=== PATIENT | female | born 1950 | race Caucasian/White ===

== ENCOUNTER 2020-08-06 14:35 | Emergency (ER) | payer MEDICARE, SELFPAY ==
[2020-08-06 14:39] VITALS: BP 136/74; PULSE 76; RESP 18; TEMP 36.3; O2SAT 97
[2020-08-06 15:03] VITALS: BP 170/76; PULSE 73; RESP 13
--- NOTE | 2020-08-06 16:00 | ED.FALL ---
HPI - Fall General Chief Complaint: Fall Stated Complaint: falls, weakness, hx ms & parkinsons dz Time Seen by Provider: 08/06/20 15:31 History of Present Illness HPI Narrative: 69 yo female presents from home for weakness and falls. She fell this morning and has had more frequent falls recently. She says that she has amna feeling weak. No areas of focal weakness. She denies hitting her head, LOC, dizziness, any pain or injury. Related Data Home Medications Medication Instructions Recorded Confirmed carbidopa-levodopa 1 tablet PO TID 05/09/19 05/16/19 citalopram 20 mg PO DAILY 05/09/19 05/09/19 clonazepam 0.5 mg PO DAILY 05/09/19 05/09/19 fluticasone propion-salmeterol 1 ea INHALATION DAILY 05/09/19 05/09/19 [Advair Diskus] lamotrigine 200 mg PO DAILY 05/09/19 05/09/19 levothyroxine 100 mcg PO DAILY 05/09/19 05/09/19 montelukast 10 mg PO DAILY 05/09/19 05/09/19 olanzapine 20 mg PO DAILY 05/09/19 05/09/19 quetiapine 100 mg PO DAILY 05/09/19 05/09/19 raloxifene 60 mg PO DAILY 05/09/19 05/09/19 mometasone [Nasonex] 2 spray INTRANASAL DAILY 05/16/19 05/16/19 mometasone-formoterol 2 puff INHALATION Q12H 05/16/19 05/16/19 Allergies Allergy/AdvReac Type Severity Reaction Status Date / Time wool Allergy Severe Rash Verified 08/06/20 15:04 Penicillins Allergy Intermediate Rash Verified 08/06/20 15:04 Review of Systems Review of Systems: All systems reviewed & are unremarkable except as noted in HPI and below Constitutional: Constitutional: Denies chills, Denies fever(s) and Reports weakness Eyes: Eyes: Reports no additional eye complaints Cardiovascular: Cardiovascular: Denies chest pain Respiratory: Respiratory: Denies dyspnea Gastrointestinal: Gastrointestinal: Denies abdominal pain, Denies diarrhea, Denies nausea and Denies vomiting Genitourinary: Genitourinary: Denies hematuria and Denies dysuria Musculoskeletal: Musculoskeletal: Denies back pain Neurologic: Denies dizziness, Denies syncope and Reports weakness PMFSH Past Medical History Medical History Asthma Depression History of colitis Hypothyroidism Multiple sclerosis Parkinson's disease Family History Family History Father Diabetes mellitus Carcinoma of colon Mother Hypertension Family history of malignant neoplasm of breast in first degree relative Social History Social History Smoking status: Never smoker Alcohol intake: current Gender identity (if verbalized by the patient): Female Exam Const: General: no acute distress and alert Nutritional Appearance: well nourished Orientation/consciousness: patient oriented x3 HENMT: Head: normal to inspection Resp: Effort & Inspection: normal respiratory effort Auscultation: clear to auscultation bilaterally Cardio: Rate: regular rate Rhythm: regular rhythm GI: Inspection: non-distended GI Palp: Yes Soft to palpation and No Tenderness to palpation present (GI) Skin: General skin exam: normal color Wounds: no wounds Neuro: General: patient oriented x3, moves all extremities and CN's II-XI intact bilaterally Speech: normal speech Gait exam (Neuro): Normal gait present Extrem: General: normal to inspection Course Vital Signs Vital signs: Vital Signs Temperature 36.3 C L 08/06/20 14:39 Pulse Rate 76 08/06/20 14:39 Respiratory Rate 18 08/06/20 14:39 Blood Pressure 136/74 08/06/20 14:39 Pulse Oximetry 97 08/06/20 14:39 Temperature 36.3 C L 08/06/20 14:39 Pulse Rate 74 08/06/20 18:52 Respiratory Rate 16 08/06/20 18:52 Blood Pressure 193/107 H 08/06/20 18:52 Pulse Oximetry 100 08/06/20 18:52 MDM - Fall MDM Narrative Medical decision making narrative: Walking well with support. Would benefit from a walker at home Medical Records Attestation: I reviewed the patient's
[2020-08-06 16:50] VITALS: BP 157/77; PULSE 76; RESP 22; O2SAT 100
[2020-08-06 17:07] LABS: Add Urine Microscopic? YES; Appearance Urine Clear (Clear); Bilirubin Urine Negative (Negative); Blood Urine Negative (Negative); Color Urine Yellow (Yellow); Glucose Urine UA Negative (Negative); Ketones Urine Trace mg/dL (Negative); Leukocyte Esterase Ur Negative LEU/UL (Negative); Mucus Urine Rare /lpf; Nitrate Urine Negative (Negative); Protein Urine Negative (Negative); RBC Urine 0-2 /hpf (0-2); Specific Grav Ur 1.006 (1.001-1.035); Squamous Epithelial Cell Urine Rare /hpf (Few); Transitional Epi Cells Urine Rare /hpf (None Seen); Urobilinogen Urine Negative mg/dL (<2.0); WBC Urine 0-3 /hpf
[2020-08-06 17:21] LABS: Basophils Percent Auto 0.3 % (0.2-1.2); Eosinophils Percent Auto 0.1 % (0-4.4); Hematocrit 40.9 % (37.0-47.0); Hemoglobin 12.8 g/dL (12.0-15.0); Immature Granulocyte Absolute 0.03 K/mm3 (0.00-0.031); Immature Granulocyte Percent A 0.4 % (0-0.5); Immature Platelet Fraction Pct 2.5 % (0.9-11.2); Lymphocytes Absolute Auto 1.62 K/mm3 (0.9-3.2); Lymphocytes Percent Auto 22.8 % (18.3-44.2); Mean Corpuscular HGB Conc 31.3 g/dl (32-36); Mean Corpuscular Hemoglobin 30.1 pg (26-34); Mean Corpuscular Volume 96.2 fl (80-100); Monocytes Absolute Auto 0.4 K/mm3 (0.1-0.6); Monocytes Percent Auto 5.2 % (2.6-8.5); Neutrophils Absolute Auto 5.1 K/mm3 (1.3-6.7); Neutrophils Percent Auto 71.2 % (45.5-73.1); Platelet Count Result 139 k/mm3 (150-375); Red Blood Count 4.25 M/mm3 (4.2-5.4); Red Cell Distribution Width 12.6 % (11.5-14.5); White Blood Count 7.1 K/mm3 (4.5-10.0)
[2020-08-06 17:31] LABS: Prothrombin Time 14.1 Seconds (11.1-14.7)
[2020-08-06 17:32] LABS: Partial Thromboplastin Time 29.8 SECONDS (22.3-36.8)
[2020-08-06 17:40] LABS: Alkaline Phosphatase 59 U/L (38-126); Anion Gap 2 mmol/L (8-16); Aspartate Amino Transferase 27 U/L (14-36); Bilirubin,Total 0.5 mg/dL (0.2-1.3); Blood Urea Nitrogen 20 mg/dL (7-17); Calcium 8.5 mg/dL (8.4-10.2); Carbon Dioxide 33 mmol/L (22-30); Chloride 106 mmol/L (98-107); Estimated CRCL calculation 74 ml/min; Estimated Glomerular Filt Rate > 60; Glucose 91 mg/dL (65-105); Potassium 4.1 mmol/L (3.4-5.0); Sodium 141 mmol/L (137-145)
[2020-08-06 17:43] LABS: NT Pro B Type Natriuretic Pept 165 PG/ML (5-100)
[2020-08-06 18:52] VITALS: BP 193/107; PULSE 74; RESP 16; O2SAT 100
[2020-08-06 19:26] LABS: Alanine Aminotransferase 4 U/L (4-35)
== END 2020-08-06 18:52 | disposition home or self-care (01) ==
PROVIDERS: Emergency Provider Emergency Medicine; PCP Family Medicine Adolescent Medicine
DX: R53.1 Weakness (principal); J45.909 Unspecified asthma, uncomplicated; G20 Parkinson's disease; G35 Multiple sclerosis; E03.9 Hypothyroidism, unspecified; F32.9 Major depressive disorder, single episode, unspecified
CPT/HCPCS: 36415; 80053; 81001; 83880; 84443; 85025; 85055; 85610; 85730; 99283

== ENCOUNTER 2021-02-03 15:37 | Outpatient (CLI) | payer MEDICARE, SELFPAY ==
--- NOTE | ~2021-02-03 | MM_ITS ---
EXAMINATION: MM screening mammo BI HISTORY: Mother TECHNIQUE: Full field digital craniocaudal and mediolateral oblique views of both breasts were obtain ed. CAD analysis was submitted and interpreted. COMPARISON: 02/14/2017, 02/12/2016 BREAST PARENCHYMAL COMPOSITION: The breasts are almost entirely fatty. FINDINGS: There is no evidence of suspicious mass, calcification, or architectural distortion in eit her breast to suggest malignancy. There has been no suspicious interval change. A stable asymmetry i s present in the outer left breast on the craniocaudal view. IMPRESSION: 1. No mammographic evidence of malignancy. Recommend routine screening mammography in one year. BI-RADS Category 2: Benign finding(s). Reviewed, dictated and finalized at location A. IMPRESSION: 1. No mammographic evidence of malignancy. Recommend routine screening mammogra phy in one year. BI-RADS Category 2: Benign finding(s).
== END 2021-02-03 15:38 | disposition home or self-care (01) ==
LOC: ANHIMG 15:39
PROVIDERS: PCP Family Medicine Adolescent Medicine; Visit Provider Student in an Organized Health Care Education/Training Program
DX: Z12.31 Encounter for screening mammogram for malignant neoplasm of breast (principal)
CPT/HCPCS: 77067

== ENCOUNTER 2022-09-14 15:58 | Outpatient (CLI) | payer MEDICARE, SELFPAY ==
[2022-09-14 16:37] LABS: Basophils Percent Auto 0.8 % (0.2-1.2); Eosinophils Percent Auto 0.4 % (0-4.4); Hematocrit 41.5 % (37.0-47.0); Immature Granulocyte Absolute 0.02 K/mm3 (0.00-0.031); Immature Granulocyte Percent A 0.4 % (0-0.5); Lymphocytes Absolute Auto 1.71 K/mm3 (0.9-3.2); Lymphocytes Percent Auto 32.2 % (18.3-44.2); Mean Corpuscular HGB Conc 31.3 g/dl (32-36); Mean Corpuscular Volume 95.8 fl (80-100); Mean Platelet Volume 10.2 fl (7.4-10.4); Monocytes Absolute Auto 0.4 K/mm3 (0.1-0.6); Monocytes Percent Auto 8.1 % (2.6-8.5); Neutrophils Absolute Auto 3.1 K/mm3 (1.3-6.7); Neutrophils Percent Auto 58.1 % (45.5-73.1); Platelet Count Result 145 k/mm3 (150-375); Red Blood Count 4.33 M/mm3 (4.2-5.4); Red Cell Distribution Width 13.7 % (11.5-14.5); White Blood Count 5.3 K/mm3 (4.5-10.0)
[2022-09-14 16:50] LABS: Alanine Aminotransferase 15 U/L (6-35); Albumin Level 3.9 g/dL (3.5-5.1); Alkaline Phosphatase 72 U/L (38-126); Anion Gap 4 mmol/L (8-16); Aspartate Amino Transferase 26 U/L (14-36); Bilirubin,Total 0.4 mg/dL (0.2-1.3); Blood Urea Nitrogen 24 mg/dL (7-17); Calcium 8.6 mg/dL (8.4-10.2); Carbon Dioxide 34 mmol/L (22-30); Chloride 102 mmol/L (98-107); Estimated Glomerular Filt Rate > 60; Glucose 86 mg/dL (65-110); Potassium 4.1 mmol/L (3.4-5.0); Sodium 140 mmol/L (137-145)
== END 2022-09-14 15:59 | disposition home or self-care (01) ==
PROVIDERS: PCP Family Medicine Adolescent Medicine; Visit Provider Student in an Organized Health Care Education/Training Program
DX: G35 Multiple sclerosis (principal)
CPT/HCPCS: 36415; 80053; 85025

== ENCOUNTER 2022-12-30 09:29 | Outpatient (CLI) | payer MEDICARE, SELFPAY | END 2022-12-30 09:30 | disposition home or self-care (01) | PROVIDERS: PCP Family Medicine Adolescent Medicine; Visit Provider Family Medicine Adolescent Medicine | DX: E03.9 Hypothyroidism, unspecified (principal) | CPT/HCPCS: 36415; 84443 ==

== ENCOUNTER 2023-08-03 11:52 | Outpatient (CLI) | payer MEDICARE, SELFPAY ==
--- NOTE | ~2023-08-03 | MR_ITS ---
MRI of the thoracic spine Clinical History: Multiple sclerosis Technique: Axial T2-weighted and gradient images, and sagittal T1-weighted, T2-weighted, and STIR malvin ges were acquired. Following intravenous administration of 14 cc MultiHance gadolinium, T1-weighted f at-sat imaging was performed in the axial and sagittal planes. Findings: There is probable mild S-shaped scoliosis. No fracture or subluxation of the thoracic spine seen. No suspicious bone marrow signal abnormality. No significant disc bulge or herniation at any thoracic level. No spinal canal stenosis or cord compr ession evident. No definite abnormal signal seen in the spinal cord. No abnormal postcontrast enhancement identified. Paravertebral soft tissues are unremarkable. Impression: No definite spinal cord lesion seen. Reviewed, dictated and finalized at [facility]. Impression: No definite spinal cord lesion seen.
--- NOTE | ~2023-08-03 | MR_ITS ---
EXAMINATION: MR brain/brain stem wo/w con DATE: 08/03/2023 14:27 INDICATION: Multiple sclerosis. TECHNIQUE: Magnetic resonance imaging (MRI) of the brain and brainstem was performed without and with 14 mL MultiHance intravenous contrast. COMPARISON: None currently available. FINDINGS: There are foci of old blood products in the deep beckham nuclei bilaterally. There is no acute ischemic infarct. There are scattered areas of increased T2-weighted signal intensity in the cerebra l and cerebellar white matter with a periventricular and subcortical predominance. The ventricles are normal in size. The paranasal sinuses are clear. There are likely changes of ocular lens replacement surgeries. The mastoid air cells are normal. IMPRESSION: 1. Moderate cerebral and cerebellar white matter disease, likely a combination of multiple sclerosis and chronic small vessel ischemic disease. Reviewed, dictated and finalized at location A.
--- NOTE | ~2023-08-03 | MR_ITS ---
MRI of the cervical spine Clinical History: Multiple sclerosis Technique: Axial T2-weighted and gradient images, and sagittal T1-weighted, T2-weighted, and STIR malvin ges were acquired. Following intravenous administration of 14 cc MultiHance gadolinium, T1-weighted f at-sat imaging was performed in the axial and sagittal planes. Findings: There is no fracture or subluxation of the cervical spine. There is multilevel moderate deg enerative disc narrowing. No suspicious bone marrow signal abnormality seen. At C2-C3, there is no disc bulge or herniation. There is minimal facet arthropathy. No spinal canal s tenosis, cord compression, or neural foramina narrowing. At C3-C4, there is minimal disc bulge. There is mild facet arthropathy. Possible minimal bilateral ne ural foraminal narrowing. No central canal stenosis or cord compression. At C4-C5, there is no disc bulge or herniation. No spinal canal stenosis or cord compression. Possibl e minimal bilateral neural foraminal narrowing, right worse than left. At C5-C6, there is minimal disc bulge with bilateral facet arthropathy. No central canal stenosis or cord compression. There is bilateral neural foraminal narrowing. At C6-C7, there is no significant disc bulge or herniation. No spinal canal stenosis, cord compressio n, or neural foraminal narrowing. No definite abnormal signal seen in the spinal cord. No abnormal postcontrast enhancement seen. Parav ertebral soft tissues are unremarkable. Impression: No definite spinal cord lesion identified. Mild degenerative spondylosis in the cervical spine, as above. Reviewed, dictated and finalized at [facility]. Impression: No definite spinal cord lesion identified. Mild degenerative spondylosis in the cervical spine, as above.
[2023-08-03 12:46] LABS: Basophils Percent Auto 0.8 % (0.2-1.2); Eosinophils Absolute Auto 0.1 K/mm3 (0-0.3); Hematocrit 41.7 % (37.0-47.0); Hemoglobin 13.1 g/dL (12.0-15.0); Immature Granulocyte Absolute 0.02 K/mm3 (0.00-0.031); Immature Granulocyte Percent A 0.4 % (0-0.5); Lymphocytes Absolute Auto 1.46 K/mm3 (0.9-3.2); Lymphocytes Percent Auto 28.5 % (18.3-44.2); Mean Corpuscular HGB Conc 31.4 g/dl (32-36); Mean Corpuscular Volume 95.6 fl (80-100); Mean Platelet Volume 10.7 fl (7.4-10.4); Monocytes Absolute Auto 0.5 K/mm3 (0.1-0.6); Monocytes Percent Auto 9.4 % (2.6-8.5); Neutrophils Absolute Auto 3.1 K/mm3 (1.3-6.7); Neutrophils Percent Auto 59.9 % (45.5-73.1); Platelet Count Result 147 k/mm3 (150-375); Red Blood Count 4.36 M/mm3 (4.2-5.4); Red Cell Distribution Width 13.4 % (11.5-14.5); White Blood Count 5.1 K/mm3 (4.5-10.0)
[2023-08-03 13:07] LABS: Alanine Aminotransferase 9 U/L (6-35); Alkaline Phosphatase 71 U/L (38-126); Aspartate Amino Transferase 25 U/L (14-36); Bilirubin,Total 0.6 mg/dL (0.2-1.3); Blood Urea Nitrogen 39 mg/dL (7-17); Calcium 8.8 mg/dL (8.4-10.2); Carbon Dioxide > 40 mmol/L (22-30); Chloride 94 mmol/L (98-107); Estimated Glomerular Filt Rate > 60; Glucose 87 mg/dL (65-110); Potassium 2.9 mmol/L (3.4-5.0); Sodium 138 mmol/L (137-145)
== END 2023-08-03 11:53 | disposition home or self-care (01) ==
PROVIDERS: PCP Family Medicine Adolescent Medicine; Visit Provider Student in an Organized Health Care Education/Training Program
DX: G35 Multiple sclerosis (principal); M43.02 Spondylolysis, cervical region; R90.82 White matter disease, unspecified
CPT/HCPCS: 36415; 70553; 72156; 72157; 80053; 85025; A9577

== ENCOUNTER 2023-09-06 14:46 | Outpatient (CLI) | payer MEDICARE, SELFPAY ==
--- NOTE | ~2023-09-06 | MM_ITS ---
EXAMINATION: MM screening she BI w sherry HISTORY: Screening mammogram TECHNIQUE: Craniocaudal and mediolateral oblique 3-D tomosynthesis images were obtained and synthetic 2-D images were generated. CAD analysis was submitted and interpreted. COMPARISON: 02/03/2021, 02/14 bilateral screening mammogram examinations BREAST PARENCHYMAL COMPOSITION: There are scattered areas of fibroglandular density. FINDINGS: Stable mild fibroglandular asymmetry is noted since 02/03/2021 and 17. There is no evidence of suspicious mass, calcification, or architectural distortion to suggest malignancy i n either breast. There has been no suspicious interval change. IMPRESSION: 1. No mammographic evidence of malignancy. 2. Recommend routine screening mammography in one year. BI-RADS Category 1: Negative Reviewed, dictated and finalized at location B.
== END 2023-09-06 14:47 | disposition home or self-care (01) ==
PROVIDERS: PCP Family Medicine Adolescent Medicine; Visit Provider Family Medicine Adolescent Medicine
DX: Z12.31 Encounter for screening mammogram for malignant neoplasm of breast (principal)
CPT/HCPCS: 77063; 77067

== ENCOUNTER 2024-09-18 00:34 | Day surgery (SDC) | payer MEDICARE, SELFPAY ==
[2024-09-10 13:18] VITALS: BMI 28.5
--- OUTSIDE RECORDS SUMMARY | 2024-09-18 00:37 | XMS_ITS | Continuity of Care Document ---
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 Name Role Phone Lemon OD, Lionel Unavailable Unavailable Procedures Procedure Date Eye Exam & Treatment Refraction Eye Exam & Treatment No Script Refraction Eye Exam & Treatment Refraction Eye Exam, New Patient Advance Directives Directive Yes / No Effective Date File Name No Information Encounters Encounter Description Practice Location Reason(s) For Visit Diagnoses Date Provider Providers Copied on Encounter [facility], [address] [place] [address] [address], [place], [place], [id number], tel:[phone] [facility] No Information Hung- 0-201 0 Lemon OD Lionel. [address] , [address], [place], [place], [facility], . tel:[phone] [facility], [address] [place] [address] [address], [place], [place], [id number], [place] tel:[phone] [facility] No Information Jul-1 0-200 9 Lemon OD Lionel. [address] , [address], [place], [place], [facility], . tel:[phone] [facility], [address], [place], [place], [id number], tel:[phone] [facility] No Information Jul-1 0-200 8 Lemon OD Lionel. [address] , [address], [place], [address], [place]. tel:[phone] [facility], [address], [place], [place], [id number], [place] tel:[phone] [facility] No Information Mar-2 0-200 7 Lemon OD Lionel. [address] , [address], [place], [address], [place]. tel:[phone] Family History Family Member Type Diagnosis Age At Onset No Information Payers Payer name Insurance type Covered libertarian ID Authoriza tion(s) [place] [id number] Medicare [place] [id number] Social History Type Description Quantity Date Captured Comments Sex Female Smoking Status No Information Chief Complaint And Reason For Visit No Information Reason For Referral Reason For Referral No Information History Of Present Illness Encounter Date Complaint History Of Prese nt Illness No Information Functional Status Date Functional Assessmen t No Information Instructions Date Instruction Additional Infor mation No Information Assessments Type Assessment Date No Information Patient Care Teams Name Effective Dates (start - stop) Status Members No Information
[2024-09-18 11:35] VITALS: BP 119/77; PULSE 90; RESP 18; TEMP 36.5; O2SAT 96; BMI 27.5
[2024-09-18] MEDS: LACTATED RINGERS 1,000 ML 150 ML IV CONT (12:17)
--- NOTE | 2024-09-18 12:42 | P.PNAN_ITS ---
Anes - Initial Pre Proc Eval Procedure: Operation Date: 09/18/24 13:00 Proposed Procedures p Screening Colonoscopy - Leland De La Rosa MD Date/Time: 09/18/24 12:42 Surgeon: Leland De La Rosa MD Pre Op Diagnosis: Screening Patient Data Age: 73 Gender: F Height: 1.6 m Weight: 70.4 kg Last Vital Signs Temp 36.5 C 09/18/24 11:35 Pulse 90 09/18/24 11:35 Resp 18 09/18/24 11:35 BP 119/77 09/18/24 11:35 Pulse Ox 96 09/18/24 11:35 O2 Del Method Room Air 09/18/24 11:35 Allergies Allergy/AdvReac Type Severity Reaction Status Date / Time wool Allergy Severe Rash Verified 09/18/24 11:41 Penicillins Allergy Intermediate Rash Verified 09/18/24 11:41 Home Medications Medication Instructions Recorded Confirmed Type citalopram 20 mg tablet 20 mg PO DAILY 05/09/19 09/18/24 History clonazepam 0.5 mg tablet 0.5 mg PO DAILY 05/09/19 09/18/24 History fluticasone 250 mcg-salmeterol 50 1 ea inhalation DAILY 05/09/19 09/18/24 History mcg/dose blistr powdr for inhalation (Advair Diskus) montelukast 10 mg tablet 10 mg PO DAILY 05/09/19 09/18/24 History olanzapine 20 mg tablet 20 mg PO DAILY 05/09/19 09/18/24 History quetiapine 100 mg tablet 100 mg PO DAILY 05/09/19 09/18/24 History lamotrigine 200 mg tablet 200 mg PO DAILY #90 tabs 08/09/22 09/18/24 Rx albuterol sulfate 90 mcg/actuation 2 inh inhalation Q4H PRN shortness 12/28/22 09/10/24 History breath activated powder inhaler of breath levothyroxine 125 mcg tablet See Rx Instructions .Route 12/22/23 09/18/24 Rx .COMPLEX #100 tabs carbidopa 25 mg-levodopa 100 mg See Rx Instructions .Route 04/10/24 09/18/24 Rx tablet .COMPLEX #600 tabs interferon beta-1b 0.3 mg See Rx Instructions .Route 04/10/24 09/10/24 Rx subcutaneous kit (Betaseron) .COMPLEX #14 ea indapamide 2.5 mg tablet 2.5 mg PO DAILY #100 tabs 05/07/24 09/18/24 Rx furosemide 40 mg tablet See Rx Instructions .Route 07/09/24 09/18/24 Rx .COMPLEX #100 tabs potassium chloride 10 mEq See Rx Instructions .Route 08/24/24 09/18/24 Rx capsule,extended release .COMPLEX #100 caps meclizine 25 mg tablet See Rx Instructions .Route 09/17/24 09/18/24 Rx .COMPLEX #400 tabs Patient hx anesthesia problems: none Family hx anesthesia problems: none Results Review: All pre-operative results and documents have been reviewed as part of the pre- operative evaluation. REPLACED BY [facility] Past Medical History Medical History (Updated 04/10/24 @ 13:51 by Tyson Martinez MD) Cerebrovascular disease Normal colonoscopy 05/21 Repeat 05/26 History of poliomyelitis 1954 Schizophrenia Hypothyroidism Asthma Parkinson's disease 2017 Multiple sclerosis Surgical History Surgical History S/P tonsillectomy and adenoidectomy Family History Family History Father Diabetes mellitus Carcinoma of colon Colon polyp Mother Hypertension Family history of malignant neoplasm of breast in first degree relative Acute myocardial infarction Breast cancer Depression Heart disease Other Heart disease Other Asthma Social History Social History Smoking status: Never smoker Second hand tobacco smoke exposure: No Alcohol intake: never Substance use: current Substance use type: does not use Do You Feel Safe in your Home?: Yes Lack of Transportation: No Lack of Food: Never True Current Housing: I Have Housing Concerned About Future Housing: No Difficulty Paying Gas/Electric Bills: No Difficulty Paying for Meds: YES Currently Unemployed: No Education: Master's Degree or Higher Difficulty w/ Childcare or Family Care: No Living arrangements: alone Occupation/Education: retired Gender identity (if verbalized by the patient): Female Sexual Orientation (if Verbalized by the Patient): Straight or Heterosexual Spiritual care concerns: No Agree to blood products: Yes Anes - Eval Final PreProcedure Day of Procedure 09/18/24 12:42 Patient weight: overweight Heart: regular rate and rhythm Lungs: clear to auscultation Airway: Mallampati scale class II Neurological: alert and oriented Last oral intake: >/= 8 hours ASA classification: III Emergent: no Anesthetic plan: proceed Anesthesia type and monitoring: general GIVS and standard monitoring Results Review: All pre-operative results and documents have been reviewed as part of the pre- operative evaluation. Informed Consent: The patient's anesthetic plan and its attendant risks and benefits were discussed with the patient/family/POA. Questions were solicited and answers provided to the satisfaction of the patient/family/POA.
--- NOTE | 2024-09-18 13:11 | PM.IMHP ---
H&P: HPI History of Present Illness Date/Time: 09/18/24 13:11 Chief Complaint: History of colon polyps Narrative: The patient has a history of colonic polyps, the last colonoscopy was 5 years ago. Her grandfather had colorectal cancer. Review of Systems Review of Systems: All systems reviewed & are unremarkable except as noted in HPI and below PMFSH Past Medical History Medical History (Updated 04/10/24 @ 13:51 by Tyson Martinez MD) Cerebrovascular disease Normal colonoscopy 05/21 Repeat 05/26 History of poliomyelitis 1953 Schizophrenia Hypothyroidism Asthma Parkinson's disease 2018 Multiple sclerosis Surgical History Surgical History S/P tonsillectomy and adenoidectomy Family History Family History Father Diabetes mellitus Carcinoma of colon Colon polyp Mother Hypertension Family history of malignant neoplasm of breast in first degree relative Acute myocardial infarction Breast cancer Depression Heart disease Other Heart disease Other Asthma Social History Social History Smoking status: Never smoker Second hand tobacco smoke exposure: No Alcohol intake: never Substance use: current Substance use type: does not use Do You Feel Safe in your Home?: Yes Lack of Transportation: No Lack of Food: Never True Current Housing: I Have Housing Concerned About Future Housing: No Difficulty Paying Gas/Electric Bills: No Difficulty Paying for Meds: YES Currently Unemployed: No Education: Master's Degree or Higher Difficulty w/ Childcare or Family Care: No Living arrangements: alone Occupation/Education: retired Gender identity (if verbalized by the patient): Female Sexual Orientation (if Verbalized by the Patient): Straight or Heterosexual Spiritual care concerns: No Agree to blood products: Yes Meds Home Medications and Allergies Home Medications Medication Instructions Recorded Confirmed Type citalopram 20 mg tablet 20 mg PO DAILY 05/09/19 09/18/24 History clonazepam 0.5 mg tablet 0.5 mg PO DAILY 05/09/19 09/18/24 History fluticasone 250 mcg-salmeterol 50 1 ea inhalation DAILY 05/09/19 09/18/24 History mcg/dose blistr powdr for inhalation (Advair Diskus) montelukast 10 mg tablet 10 mg PO DAILY 05/09/19 09/18/24 History olanzapine 20 mg tablet 20 mg PO DAILY 05/09/19 09/18/24 History quetiapine 100 mg tablet 100 mg PO DAILY 05/09/19 09/18/24 History lamotrigine 200 mg tablet 200 mg PO DAILY #90 tabs 08/09/22 09/18/24 Rx albuterol sulfate 90 mcg/actuation 2 inh inhalation Q4H PRN shortness 12/28/22 09/10/24 History breath activated powder inhaler of breath levothyroxine 125 mcg tablet See Rx Instructions .Route 12/22/23 09/18/24 Rx .COMPLEX #100 tabs carbidopa 25 mg-levodopa 100 mg See Rx Instructions .Route 04/10/24 09/18/24 Rx tablet .COMPLEX #600 tabs interferon beta-1b 0.3 mg See Rx Instructions .Route 04/10/24 09/10/24 Rx subcutaneous kit (Betaseron) .COMPLEX #14 ea indapamide 2.5 mg tablet 2.5 mg PO DAILY #100 tabs 05/07/24 09/18/24 Rx furosemide 40 mg tablet See Rx Instructions .Route 07/09/24 09/18/24 Rx .COMPLEX #100 tabs potassium chloride 10 mEq See Rx Instructions .Route 08/24/24 09/18/24 Rx capsule,extended release .COMPLEX #100 caps meclizine 25 mg tablet See Rx Instructions .Route 09/17/24 09/18/24 Rx .COMPLEX #400 tabs Allergies Allergy/AdvReac Type Severity Reaction Status Date / Time wool Allergy Severe Rash Verified 09/18/24 11:41 Penicillins Allergy Intermediate Rash Verified 09/18/24 11:41 Vital Signs Vital Signs - 24 hr 09/18/24 11:35 Temperature 97.7 F Pulse Rate 90 Respiratory Rate 18 Blood Pressure 119/77 Pulse Oximetry 96 Oxygen Delivery Room Air Exam Const: General: cooperative and healthy appearing Resp: Effort & Inspection: normal respiratory effort and able to speak in complete sentences Auscultation: clear to auscultation bilaterally Cardio: Rate: regular rate Rhythm: regular rhythm GI: Inspection: normal to inspection GI Palp: No No hepatosplenomegaly present Auscultation: normal bowel sounds Rectal Exam: deferred Skin: General skin exam: normal color Psych: Appearance: grossly normal Mental Status: mental status grossly normal Assessment and Plan Assessment and plan (1) Family hx of colon cancer: Code(s): Z80.0 - Family history of malignant neoplasm of digestive organs Status: Acute Assessment and Plan: The patient is deemed a good candidate for the procedure. Consent signed. Will proceed.
[2024-09-18 13:28] VITALS: BP 135/71; PULSE 68; RESP 19; O2SAT 99
[2024-09-18 13:38] VITALS: BP 145/84; PULSE 71; RESP 19; O2SAT 99
[2024-09-18 13:48] VITALS: BP 138/78; PULSE 78; RESP 18; O2SAT 99
== END 2024-09-18 14:05 | disposition home or self-care (01) ==
PROVIDERS: PCP Family Medicine Adolescent Medicine; Referring Provider Family Medicine Adolescent Medicine; Visit Provider Internal Medicine Gastroenterology
PROC: 0DJD8ZZ Inspection of Lower Intestinal Tract, Via Natural or Artificial Opening Endoscopic (ICD-10-PCS; CPT 45378; principal; 2024-09-18 13:00)
DX: Z12.11 Encounter for screening for malignant neoplasm of colon (principal); Z86.0100 Personal history of colon polyps, unspecified; Z53.8 Procedure and treatment not carried out for other reasons
CPT/HCPCS: G0105; J2003; J2704; J7120

== ENCOUNTER 2024-09-28 13:24 | Outpatient (CLI) | payer MEDICARE, SELFPAY ==
--- NOTE | ~2024-09-28 | US_ITS ---
EXAMINATION: US carotid duplex BI DATE: 09/28/2024 15:00 INDICATION: Cerebrovascular disease TECHNIQUE: Grayscale, color Doppler, and pulsed Doppler images of the cervical carotid arteries were obtained. The degree of vessel stenosis is placed in one of the following categories: normal, <50%, 5 0-69%, >=70% but less than near-occlusion, near-occlusion, or total occlusion. Note that percent sten osis relative to normal distal artery lumen diameter is indirectly measured from velocity measurement s as described by Sander, et al. Radiology 2003; 229:340-346. Notes: Normal: Peak systolic velocity <125 centimeters/sec and no plaque <50%. Peak systolic velocity <125 ( EDV <40; ICA/CCA PSV ratio <2.0; used these factors only a tandem lesions or low cardiac output or co ntralateral disease) 50-69 %: PSV 125-230 (EDV 40-100; ratio 2-4) >= 70% but less than near occlusion: PSV greater than 230 (EDV > 100; ratio> 4.0) Near Occlusion: PSV that is variable; markedly narrowed lumen Occlusion: Absent flow on color/spectral Doppler and no lumen on beckham scale. COMPARISON: None. FINDINGS: RIGHT: The right common carotid artery (CCA) peak systolic velocity (PSV) is 91 cm/s. The right internal car otid artery (ICA) PSV is 91 cm/s. The right ICA end-diastolic velocity (EDV) is 58 cm/s. The right IC A/CCA PSV ratio is 16. The external carotid artery (ECA) PSV is 0.6 cm/s. There is antegrade flow in the right vertebral artery. LEFT: The left CCA PSV is 54 cm/s. The left ICA PSV is 56 cm/s. The left ICA EDV is 20 cm/s. The left ICA/C CA PSV ratio is 1.4. The ECA PSV is 59 cm/s. There is antegrade flow in the left vertebral artery. IMPRESSION: 1. Less than 50% stenosis in the right internal carotid artery by sonographic criteria. 2. Less than 50% stenosis in the left internal carotid artery by sonographic criteria. Reviewed, dictated and finalized at location A. IMPRESSION: 1. Less than 50% stenosis in the right internal carotid artery by sonographic perry ambrose. 2. Less than 50% stenosis in the left internal carotid artery by sonographic jose rafael palomares.
== END 2024-09-28 13:25 | disposition home or self-care (01) ==
PROVIDERS: PCP Family Medicine Adolescent Medicine; Visit Provider Psychiatry & Neurology Neurology
DX: I65.23 Occlusion and stenosis of bilateral carotid arteries (principal); I67.9 Cerebrovascular disease, unspecified; I10 Essential (primary) hypertension; G35 Multiple sclerosis; F25.9 Schizoaffective disorder, unspecified; A80.9 Acute poliomyelitis, unspecified; G20.A1 Parkinson's disease without dyskinesia, without mention of fluctuations
CPT/HCPCS: 93880

== ENCOUNTER 2024-10-02 11:37 | Outpatient (CLI) | payer MEDICARE, SELFPAY ==
[2024-10-02 12:09] LABS: Basophils Percent Auto 0.7 % (0.2-1.2); Eosinophils Absolute Auto 0.1 K/mm3 (0-0.3); Hematocrit 42.6 % (37.0-47.0); Hemoglobin 13.2 g/dL (12.0-15.0); Immature Granulocyte Absolute 0.02 K/mm3 (0.00-0.031); Immature Granulocyte Percent A 0.4 % (0-0.5); Lymphocytes Absolute Auto 1.66 K/mm3 (0.9-3.2); Mean Corpuscular Hemoglobin 28.5 pg (26-34); Mean Platelet Volume 9.9 fl (7.4-10.4); Monocytes Absolute Auto 0.5 K/mm3 (0.1-0.6); Monocytes Percent Auto 8.7 % (2.6-8.5); Neutrophils Absolute Auto 3.2 K/mm3 (1.3-6.7); Neutrophils Percent Auto 58.2 % (45.5-73.1); Platelet Count Result 199 k/mm3 (150-375); Red Blood Count 4.63 M/mm3 (4.2-5.4); Red Cell Distribution Width 14.6 % (11.5-14.5); White Blood Count 5.5 K/mm3 (4.5-10.0)
[2024-10-02 14:03] LABS: Alanine Aminotransferase 12 U/L (6-35); Albumin Level 4.1 g/dL (3.5-5.1); Alkaline Phosphatase 74 U/L (38-126); Anion Gap 5 mmol/L (4-12); Aspartate Amino Transferase 27 U/L (14-36); Bilirubin,Total 0.7 mg/dL (0.2-1.3); Blood Urea Nitrogen 34 mg/dL (7-17); Carbon Dioxide 37 mmol/L (22-30); Chloride 99 mmol/L (98-107); Cholesterol 191 mg/dL (0-200); Estimated Glomerular Filt Rate 58; Glucose 95 mg/dL (65-110); HDL Direct 47 mg/dL; Potassium 3.2 mmol/L (3.4-5.0); Sodium 141 mmol/L (137-145); Total Protein 7.9 g/dL (6.3-8.2); Triglycerides 70 mg/dL (<150)
[2024-10-02 14:14] LABS: LDL Cholesterol Direct 95 mg/dL
[2024-10-04 12:43] LABS: Red Blood Cell Folate 526 ng/mL RBC (>280)
[2024-10-05 15:09] LABS: Methylmalonic Acid 281 nmol/L (69-390)
[2024-10-07 12:08] LABS: Vitamin D 1,25 (OH)2 Total 15 pg/mL (18-72); Vitamin D2 1,25 (OH)2 <8 pg/mL; Vitamin D3 1,25 (OH)2 15 pg/mL
== END 2024-10-02 11:38 | disposition home or self-care (01) ==
LOC: ANHLAB 11:39
PROVIDERS: PCP Family Medicine Adolescent Medicine; Visit Provider Psychiatry & Neurology Neurology
DX: G35 Multiple sclerosis (principal); F25.9 Schizoaffective disorder, unspecified; I10 Essential (primary) hypertension; A80.9 Acute poliomyelitis, unspecified; E55.9 Vitamin D deficiency, unspecified; I67.9 Cerebrovascular disease, unspecified
CPT/HCPCS: 36415; 80053; 80061; 82607; 82652; 82747; 83921; 85025

== ENCOUNTER 2024-12-03 16:30 | Inpatient (IN) | payer MEDICARE, SELFPAY ==
--- NOTE | ~2024-12-03 | CT_ITS ---
History: Altered mental status PROCEDURE: CT head without contrast. COMPARISON: 01/18/2018 TECHNIQUE: Axial imaging of the head performed from the skull base to the vertex without IV contrast. Sagittal a nd coronal reformations obtained. Examination is markedly limited secondary to a significant amount of motion artifact DLP: 1628 mGy-cm FINDINGS: The ventricles are enlarged. The dilatation of the ventricles is proportional to the degree of sulcal prominence, not uncommon in the senescent brain. Decreased attenuation is identified within the periventricular white matter, likely secondary to micr ovascular ischemic disease, in a patient of this age. There is no large mass, mass effect or significant midline shift. There is no abnormal extra-axial fluid collection or large intracranial hemorrhage. Visualized paranasal sinuses are clear. The mastoid air cells are well aerated. No acute displaced fractures within the overlying cranium. Impression: No large acute intracranial hemorrhage or suspicious mass effect. Reviewed, dictated and finalized at location A. Impression: No large acute intracranial hemorrhage or suspicious mass effect.
--- NOTE | 2024-12-03 16:39 | ECG_ITS ---
Test Date: 2024-12-03 16:55:58 Measurements Intervals [place] Rate: 84 P: 63 [place]: 178 QRS: 32 QRSD: 106 T: 62 QT: 391 QTc: 465 Interpretive Statements SINUS RHYTHM NONSPECIFIC ST & T-WAVE ABNORMALITY- INF/LAT LEADS BASELINE ARTIFACT- I, II, III, AVR, AVL, AVF, V1-V6 BORDERLINE ECG No previous ECG available for comparison Electronically Signed On 12-03-2024 19:39:29 CDT by Olvin Myers D.O.
[2024-12-03 16:40] VITALS: BP 136/69; PULSE 85; RESP 18; TEMP 36.9; O2SAT 96
[2024-12-03 17:02] LABS: Hematocrit 36.7 % (37.0-47.0); Hemoglobin 12.2 g/dL (12.0-15.0); Immature Granulocyte Percent A 0.5 % (0-0.5); Immature Platelet Fraction Pct 4.0 % (0.9-11.2); Lymphocytes Absolute Auto 1.14 K/mm3 (0.9-3.2); Mean Corpuscular HGB Conc 33.2 g/dl (32-36); Mean Corpuscular Hemoglobin 28.8 pg (26-34); Mean Corpuscular Volume 86.6 fl (80-100); Nucleated Red Blood Cells Absolute Auto 0.000 K/mm3 (0.0-0.012); Nucleated Red Blood Cells Perc 0.0 % (0.0-0.2); Platelet Count Result 141 k/mm3 (150-375); Red Blood Count 4.24 M/mm3 (4.2-5.4); White Blood Count 12.7 K/mm3 (4.5-10.0)
[2024-12-03 17:03] LABS: Add Urine Microscopic? NO; Appearance Urine Clear (Clear); Glucose Urine UA Negative (Negative); Leukocyte Esterase Ur Negative LEU/UL (Negative); Nitrate Urine Negative (Negative); Specific Grav Ur 1.009 (1.001-1.035)
[2024-12-03 17:11] LABS: Alanine Aminotransferase 19 U/L (6-35); Albumin Level 4.0 g/dL (3.5-5.1); Alkaline Phosphatase 82 U/L (38-126); Anion Gap 15 mmol/L (4-12); Aspartate Amino Transferase 46 U/L (14-36); Bilirubin,Total 1.3 mg/dL (0.2-1.3); Blood Urea Nitrogen 28 mg/dL (7-17); Calcium 7.5 mg/dL (8.4-10.2); Carbon Dioxide 22 mmol/L (22-30); Chloride 83 mmol/L (98-107); Estimated CRCL calculation 46 ml/min; Estimated Glomerular Filt Rate > 60; Glucose 84 mg/dL (65-110); Potassium 3.2 mmol/L (3.4-5.0); Sodium 120 mmol/L (137-145); Total Protein 7.3 g/dL (6.3-8.2)
[2024-12-03 17:16] LABS: INR 1.1; Partial Thromboplastin Time 30.2 Seconds (22.3-36.8); Prothrombin Time 14.1 Seconds (11.1-14.7)
--- NOTE | 2024-12-03 17:21 | ED_ITS ---
HPI - General Adult General Chief complaint: Altered Mental Status Stated complaint: weak/lethargic Time Seen by Provider: 12/03/24 16:33 History of Present Illness HPI narrative: Patient is a 74-year-old female who presents ER with weakness and altered mental status. Patient has been performing a bowel prep for a colonoscopy in developed profuse of weakness. She was found slumped over on the toilet. She is not alert oriented for me on evaluation here. No hypertension. Patient has diffuse body tremors. Patient does have history of MS, Parkinson's, and polio illnesses the child. Related Data Home Medications ?Medication ?Instructions ?Recorded ?Confirmed ?Last Taken ?Type citalopram 20 mg tablet 20 mg PO DAILY 05/09/19 11/29/24 09/17/24 History clonazepam 0.5 mg tablet 0.5 mg PO DAILY 05/09/19 11/29/24 09/17/24 History fluticasone 250 mcg-salmeterol 50 1 ea inhalation DAILY 05/09/19 11/29/24 09/17/24 History mcg/dose blistr powdr for inhalation (Advair Diskus) montelukast 10 mg tablet 10 mg PO DAILY 05/09/19 11/29/24 09/17/24 History olanzapine 20 mg tablet 20 mg PO DAILY 05/09/19 11/29/24 09/17/24 History quetiapine 100 mg tablet 100 mg PO DAILY 05/09/19 11/29/24 09/17/24 History albuterol sulfate 90 mcg/actuation 2 inh inhalation Q4H PRN shortness 12/28/22 11/29/24 Unknown History breath activated powder inhaler of breath Allergies Allergy/AdvReac Type Severity Reaction Status Date / Time wool Allergy Severe Rash Verified 11/06/24 13:04 Penicillins Allergy Intermediate Rash Verified 11/06/24 13:04 Review of Systems 2 Review of Systems: ROS unobtainable: Yes unobtainable due to mental status PMFSH Past Medical History Medical History Cerebrovascular disease Normal colonoscopy 05/21 Repeat 05/26 History of poliomyelitis 1953 Schizophrenia Hypothyroidism Asthma Parkinson's disease 2017 Multiple sclerosis Surgical History Surgical History S/P tonsillectomy and adenoidectomy Family History Family History Father Diabetes mellitus Carcinoma of colon Colon polyp Mother Hypertension Family history of malignant neoplasm of breast in first degree relative Acute myocardial infarction Breast cancer Depression Heart disease Other Heart disease Other Asthma Social History Social History Smoking status: Never smoker Second hand tobacco smoke exposure: No Alcohol intake: never Substance use: current Substance use type: does not use Do You Feel Safe in your Home?: Yes Lack of Transportation: No Lack of Food: Never True Current Housing: I Have Housing Concerned About Future Housing: No Difficulty Paying Gas/Electric Bills: No Difficulty Paying for Meds: YES Currently Unemployed: No Education: Master's Degree or Higher Difficulty w/ Childcare or Family Care: No Living arrangements: alone Occupation/Education: retired Gender identity (if verbalized by the patient): Female Sexual Orientation (if Verbalized by the Patient): Straight or Heterosexual Spiritual care concerns: No Agree to blood products: Yes Exam 2 Narrative: GENERAL: Ill-appearing, well-nourished, and tremulous. HEAD: Normocephalic, atraumatic. EYES: PERRL and EOMI. ENT: Mucous membranes moist. CHEST: Clear to auscultation. No respiratory distress. HEART: Regular rate and rhythm. Normal peripheral pulses. ABDOMEN: Soft, nontender, nondistended. EXTREMITIES: Normal range of motion. No edema. SKIN: Warm, dry, no rash. NEURO: Alert and oriented x1. Diffuse tremors PSYCH: Normal mood and affect. Course Course Emergency Course: Patient now awake alert orient x3 but still having trouble giving history. She is receiving potassium as well as IV fluid. Received calcium gluconate IV push. Will plan admission. Vital Signs Vital signs: Vital Signs Temperature 98.5 F 12/03/24 16:40 Pulse Rate 85 12/03/24 16:40 Respiratory Rate 18 12/03/24 16:40 Blood Pressure 136/69 12/03/24 16:40 Pulse Oximetry 96 12/03/24 16:40 Oxygen Delivery Room Air 12/03/24 16:40 Temperature 97.8 F 12/03/24 19:23 Pulse Rate 89 12/03/24 19:23 Respiratory Rate 18 12/03/24 19:23 Blood Pressure 129/87 12/03/24 19:23 Pulse Oximetry 98 12/03/24 19:23 Oxygen Delivery Room Air 12/03/24 16:40 Medical Decision Making Vital Signs Vital Signs: Vital Signs Temperature 98.5 F 12/03/24 16:40 Pulse Rate 85 12/03/24 16:40 Respiratory Rate 18 12/03/24 16:40 Blood Pressure 136/69 12/03/24 16:40 Pulse Oximetry 96 12/03/24 16:40 Oxygen Delivery Room Air 12/03/24 16:40 Temperature 97.8 F 12/03/24 19:23 Pulse Rate 89 12/03/24 19:23 Respiratory Rate 18 12/03/24 19:23 Blood Pressure 129/87 12/03/24 19:23 Pulse Oximetry 98 12/03/24 19:23 Oxygen Delivery Room Air 12/03/24 16:40 Lab Data 12/03/24 16:53 12/03/24 16:53 Labs: Lab Results 12/03/24 12/03/24 Range/Units 16:53 17:41 WBC 12.7 H (4.5-10.0) K/mm3 RBC 4.24 (4.2-5.4) M/mm3 Hgb 12.2 (12.0-15.0) g/dL Hct 36.7 L (37.0-47.0) % MCV 86.6 (80-100) fl MCH 28.8 (26-34) pg MCHC 33.2 (32-36) g/dl RDW 13.0 (11.5-14.5) % Plt Count 141 L (150-375) k/mm3 MPV 10.2 (7.4-10.4) fl Immature Gran % (Auto) 0.5 (0-0.5) % Neut % (Auto) 86.0 H (45.5-73.1) % Lymph % (Auto) 8.9 L (18.3-44.2) % [place] % (Auto) 4.2 (2.6-8.5) % Eos % (Auto) 0.1 (0-4.4) % Baso % (Auto) 0.3 (0.2-1.2) % Lymph # (Auto) 1.14 (0.9-3.2) K/mm3 [place] # (Auto) 0.5 (0.1-0.6) K/mm3 Eos # (Auto) 0.0 (0-0.3) K/mm3 Baso # (Auto) 0.0 (0.0-0.1) K/mm3 Abs Immat Gran (auto) 0.06 H (0.00-0.031) K/mm3 Absolute Neuts (auto) 11.0 H (1.3-6.7) K/mm3 Absolute Nucleated RBC 0.000 (0.0-0.012) K/mm3 Nucleated RBC % 0.0 (0.0-0.2) % % Immature Plt Fraction 4.0 (0.9-11.2) % PT 14.1 (11.1-14.7) Seconds INR 1.1 APTT 30.2 (22.3-36.8) Seconds Methemoglobin 0.3 (0-1.5) %THb Sodium 120 L (137-145) mmol/L Potassium 3.2 L (3.4-5.0) mmol/L Chloride 83 L (98-107) mmol/L Carbon Dioxide 22 (22-30) mmol/L Anion Gap 15 H (4-12) mmol/L BUN 28 H (7-17) mg/dL Creatinine 0.87 (0.7-1.0) mg/dL Estim Creat Clear Calc 46 ml/min Estimated GFR > 60 (59 - ) Glucose 84 (65-110) mg/dL Calcium 7.5 L (8.4-10.2) mg/dL Total Bilirubin 1.3 (0.2-1.3) mg/dL AST 46 H (14-36) U/L ALT 19 (6-35) U/L Alkaline Phosphatase 82 (38-126) U/L Total Protein 7.3 (6.3-8.2) g/dL Albumin 4.0 (3.5-5.1) g/dL Urine Color Yellow (Yellow) Urine Appearance Clear (Clear) Urine pH 6.5 (5.0-9.0) Ur Specific [place] 1.009 (1.001-1.035) Urine Protein Negative (Negative) mg/dL Urine Glucose (UA) Negative (Negative) mg/dL Urine Ketones Negative (Negative) mg/dL Ur Blood (Man) Negative (Negative) Urine Nitrate Negative (Negative) Urine Bilirubin Negative (Negative) Urine Urobilinogen 0.2 (<2.0) mg/dL Leukocyte Esterase Rfl Negative (Negative) ARIANA/UL ABG Data ABG results: 12/03/24 17:41 Puncture Site Right radial ABG pH 7.498 H ABG pCO2 29.8 L ABG pO2 65.4 L ABG PO2/FiO2 Ratio 3.11 ABG HCO3 22.6 ABG O2 Saturation 94.7 L ABG O2 Content 16.9 ABG Base Excess 0.3 A-a Gradient 48.6 Oxyhemoglobin 92.3 Carboxyhemoglobin 1.0 Reduced Hemoglobin 6.4 H Total Hemoglobin 13.0 O2 Delivery Device Room air O2 Liters/Min Not Reportable FiO2 21 Imaging Data Radiologist's impression: ITS Impressions Head CT 12/03/24 18:11 Impression: No large acute intracranial hemorrhage or suspicious mass effect. ECG Data EKG #1: ECG completion date: 12/03/24 ECG completion time: 16:55 EKG Interpretation: normal rate (84), sinus rhythm, non-specific ST changes and normal QRS Discharge Plan Discharge Clinical Impression: Acute hyponatremia, Acute hypokalemia, Dehydration, Vasovagal syncope Patient Disposition: Still a Patient Condition: Stable Patient Language: Cambodian Prescriptions: No Action albuterol sulfate 90 mcg/actuation aerosol powdr breath activated 2 inh inhalation Q4H PRN (Reason: shortness of breath) carbidopa-levodopa 25-100 mg tablet See Rx Instructions .ROUTE .COMPLEX Qty: 600 2RF Dose Instruction: TAKE 2 TABLETS BY MOUTH 3 TIMES DAILY Rx Instructions: TAKE 2 TABLETS BY MOUTH 3 TIMES DAILY Betaseron 0.3 mg kit See Rx Instructions .ROUTE .COMPLEX Qty: 14 6RF Dose Instruction: MIX WITH 1.2ML DILUENT AND INJECT 0.25MG (1ML) SUBCUTANEOUSLY EVERY OTHER DAY Rx Instructions: MIX WITH 1.2ML DILUENT AND INJECT 0.25MG (1ML) SUBCUTANEOUSLY EVERY OTHER DAY cholecalciferol (vitamin D3) 1,250 mcg (50,000 unit) capsule 1,250 mcg PO WEEKLY Qty: 14 0RF fluticasone propion-salmeterol [Advair Diskus] 250-50 mcg/dose blister with device 1 ea INHALATION DAILY clonazepam 0.5 mg tablet 0.5 mg PO DAILY quetiapine 100 mg tablet 100 mg PO DAILY citalopram 20 mg tablet 20 mg PO DAILY montelukast 10 mg tablet 10 mg PO DAILY olanzapine 20 mg tablet 20 mg PO DAILY lamotrigine 200 mg tablet 200 mg PO DAILY Qty: 90 2RF levothyroxine 125 mcg tablet See Rx Instructions .ROUTE .COMPLEX Qty: 100 3RF Dose Instruction: TAKE 1 TABLET BY MOUTH DAILY Rx Instructions: TAKE 1 TABLET BY MOUTH DAILY furosemide 40 mg tablet See Rx Instructions .ROUTE .COMPLEX Qty: 100 1RF Dose Instruction: TAKE 1 TABLET BY MOUTH EVERY MORNING Rx Instructions: TAKE 1 TABLET BY MOUTH EVERY MORNING potassium chloride 10 mEq capsule, extended release See Rx Instructions .ROUTE .COMPLEX Qty: 100 1RF Dose Instruction: TAKE 1 CAPSULE BY MOUTH DAILY Rx Instructions: TAKE 1 CAPSULE BY MOUTH DAILY meclizine 25 mg tablet See Rx Instructions .ROUTE .COMPLEX Qty: 400 0RF Dose Instruction: TAKE 1 TABLET BY MOUTH 4 TIMES DAILY NEEDED FOR DIZZINESS Rx Instructions: TAKE 1 TABLET BY MOUTH 4 TIMES DAILY NEEDED FOR DIZZINESS cholecalciferol (vitamin D3) 1,250 mcg (50,000 unit) capsule 1,250 mcg PO WEEKLY Qty: 14 0RF indapamide 2.5 mg tablet 2.5 mg PO DAILY Qty: 100 1RF Follow-up/Referrals: Sherri Bagley APRN [Primary Care Provider] -
[2024-12-03 17:44] LABS: Alveolar/Arterial O2 Gradient 48.6 mmHg; Carboxyhemoglobin 1.0 % THb (0-2.0); Fractional Inspired Oxygen 21 %; HCO3 ABG 22.6 mEq/l (22.0-26.0); Methemoglobin ABG 0.3 %THb (0-1.5); Modified Allen's Test Pass; Oxygen Content ABG 16.9 %vol (16.0-22.0); Oxygen Saturation ABG 94.7 % (95.0-100.0); PCO2 ABG 29.8 mmHg (35.0-45.0); PO2 ABG 65.4 mmHg (80.0-100.0); PO2 FiO2 Ratio Arterial Blood 3.11 %; Reduced Hemoglobin 6.4 %THb (0-5.0); Site Drawn RIGHT RADIAL
[2024-12-03] MEDS: SODIUM CHLORIDE 0.9% IV 1,000 ML 999 ML IV CONT ×2 (18:05→19:20)
[2024-12-03] MEDS: KCL 20 MEQ/SW 100 ML 100 ML 50 MEQ IVPB (18:08)
[2024-12-03] MEDS: CALCIUM GLUCONATE 1,000 MG/10 ML VIAL 1000 MG IV PUSH (18:19)
[2024-12-03 18:30] VITALS: BP 136/82; PULSE 85; RESP 18; TEMP 36.2; O2SAT 100
[2024-12-03] MEDS: SODIUM CHLORIDE 0.9% IV 300 ML 999 ML IV CONT (19:21)
[2024-12-03 19:23] VITALS: BP 129/87; PULSE 89; RESP 18; TEMP 36.6; O2SAT 98
[2024-12-03 19:30] VITALS: O2SAT 98
--- NOTE | 2024-12-03 19:35 | PC.NURSE ---
Assumed care of patient after receiving bedside report from CECY Le. Fluids started at this time. Pt linens and undergarments changed at this time. Vitals WNL.
[2024-12-03 21:16] VITALS: BP 148/91; PULSE 84; RESP 20; O2SAT 97
[2024-12-03 22:05] VITALS: BP 131/75; PULSE 84; RESP 16; TEMP 36.9; O2SAT 98; BMI 28.1
--- NOTE | 2024-12-03 22:05 | ADMGEN ---
This patient, Vanessa Arechiga, was admitted to Medical Room 244-. Patient/family oriented to hospital policies and general routines including ID bracelet, bed and alarms, visiting hours, pain management, procedures, bathroom and other care routines, personal items, smoking policy, room service/diet, and visiting hours. Information on how to activate the Rapid Response Team has been discussed. Patient/Family are encouraged to report perceived risks to care and to ask questions if they do not understand what they are told or what they should do.
[2024-12-03 23:12] LABS: Anion Gap 9 mmol/L (4-12); Blood Urea Nitrogen 21 mg/dL (7-17); Calcium 8.0 mg/dL (8.4-10.2); Carbon Dioxide 24 mmol/L (22-30); Chloride 96 mmol/L (98-107); Estimated CRCL calculation 54 ml/min; Estimated Glomerular Filt Rate > 60; Glucose 85 mg/dL (65-110); Magnesium 1.7 mg/dL (1.6-2.3); Potassium 2.8 mmol/L (3.4-5.0); Sodium 129 mmol/L (137-145)
[2024-12-04] VITALS (11 sets, daily range): BP systolic 103–124; BP diastolic 48–70; PULSE 76–93; RESP 14–20; TEMP 36.2–36.9; O2SAT 95–100
[2024-12-04] MEDS: CARBIDOPA/LEVODOPA 25/100 MG TABLET 2 TABLET PO ×4 (00:15→21:45)
--- NOTE | 2024-12-04 01:00 | PCRCNOTE ---
Window of time for administration has passed. See next scheduled administration.
[2024-12-04] MEDS: MAGNESIUM SULF 2 GM/WATER 50ML 2 GM/50 ML BAG IVPB (01:24)
[2024-12-04] MEDS: POTASSIUM CHLORIDE 20 MEQ PACKET (FOR LIQUID) 40 MEQ PO ×2 (01:30→03:33)
--- NOTE | 2024-12-04 02:04 | PM.IMHP ---
H&P: HPI History of Present Illness Date/Time: 12/04/24 02:04 Chief Complaint: Change in mental status while on the toilet Narrative: 74-year-old female with a past medical history of Parkinson's disease, prior CVA, post-polio syndrome, schizophrenia, multiple sclerosis and hypothyroidism who presented to the ER after having transient change in mental status bile having a bowel movement on the toilet. Patient has a history of colon polyps and has a family history of colorectal cancer she was originally scheduled for colonoscopy in August but colonoscopy was unable to be performed due to inadequate prep. She was subsequently rescheduled to have colonoscopy on 12/04/2024. She was in the process of colon prep when she was having a bowel movement and became altered on the toilet. The patient's family contacted EMS EMS stated the patient appeared to have had a vagal episode. Patient's blood pressures were stable by the time she arrived to the ER. She is alert oriented to person place and time and remembers taking the medications for the bowel prep but does not remember passing out on the toilet. She reports that her abdomen feels ?sensitive?. But she has no other complaints. Review of Systems Review of Systems: Despite being alert oriented x4 the patient is a poor historian in subsequently review of systems is limited. [facility] Past Medical History Medical History Cerebrovascular disease Normal colonoscopy 05/21 Repeat 05/26 History of poliomyelitis 1953 Schizophrenia Hypothyroidism Asthma Parkinson's disease 2018 Multiple sclerosis Surgical History Surgical History S/P tonsillectomy and adenoidectomy Family History Family History Father Diabetes mellitus Carcinoma of colon Colon polyp Mother Hypertension Family history of malignant neoplasm of breast in first degree relative Acute myocardial infarction Breast cancer Depression Heart disease Other Heart disease Other Asthma Social History Social History (Updated 12/04/24 @ 06:33 by lAmaz Ta DO) Social History: Patient is single and has never been . She lives in her own home. She does not have any children. She retired from the [employer]. Code status: Full code Surrogate decision maker: Helen Culp Smoking status: Never smoker Second hand tobacco smoke exposure: No Alcohol intake: never Substance use: never Do You Feel Safe in your Home?: Yes Lack of Transportation: No Lack of Food: Never True Current Housing: I Have Housing Concerned About Future Housing: No Difficulty Paying Gas/Electric Bills: No Difficulty Paying for Meds: YES Currently Unemployed: No Education: Master's Degree or Higher Difficulty w/ Childcare or Family Care: No Living arrangements: alone Occupation/Education: retired Gender identity (if verbalized by the patient): Female Sexual Orientation (if Verbalized by the Patient): Straight or Heterosexual Spiritual care concerns: No Agree to blood products: Yes Meds Home Medications and Allergies Home Medications ?Medication ?Instructions ?Recorded ?Confirmed ?Type citalopram 20 mg tablet 20 mg PO DAILY 05/09/19 12/03/24 History clonazepam 0.5 mg tablet 0.5 mg PO DAILY 05/09/19 12/03/24 History fluticasone 250 mcg-salmeterol 50 1 ea inhalation DAILY 05/09/19 12/03/24 History mcg/dose blistr powdr for inhalation (Advair Diskus) montelukast 10 mg tablet 10 mg PO DAILY 05/09/19 12/03/24 History lamotrigine 200 mg tablet 200 mg PO DAILY #90 tabs 08/09/22 12/03/24 Rx levothyroxine 125 mcg tablet See Rx Instructions .Route 12/22/23 12/03/24 Rx .COMPLEX #100 tabs furosemide 40 mg tablet See Rx Instructions .Route 07/09/24 12/03/24 Rx .COMPLEX #100 tabs potassium chloride 10 mEq See Rx Instructions .Route 08/24/24 12/03/24 Rx capsule,extended release .COMPLEX #100 caps meclizine 25 mg tablet See Rx Instructions .Route 10/08/24 12/03/24 Rx .COMPLEX #400 tabs carbidopa 25 mg-levodopa 100 mg See Rx Instructions .Route 10/09/24 12/03/24 Rx tablet .COMPLEX #600 tabs cholecalciferol (vitamin D3) 1,250 1,250 mcg PO WEEKLY #14 caps 10/09/24 12/03/24 Rx mcg (50,000 unit) capsule interferon beta-1b 0.3 mg See Rx Instructions .Route 10/09/24 12/03/24 Rx subcutaneous kit (Betaseron) .COMPLEX #14 ea indapamide 2.5 mg tablet 2.5 mg PO DAILY #100 tabs 11/21/24 12/03/24 Rx albuterol sulfate 90 mcg/actuation 2 puff inhalation Q4H PRN 12/03/24 12/03/24 History aerosol inhaler shortness of breath or wheezing olanzapine 7.5 mg tablet 7.5 mg PO DAILY 12/03/24 12/03/24 History quetiapine 150 mg tablet 150 mg PO DAILY 12/03/24 12/03/24 History raloxifene 60 mg tablet 60 mg PO DAILY 12/03/24 12/03/24 History Allergies Allergy/AdvReac Type Severity Reaction Status Date / Time wool Allergy Severe Rash Verified 12/03/24 22:07 Penicillins Allergy Intermediate Rash Verified 12/03/24 22:07 Vital Signs Vital Signs - 24 hr 12/03/24 16:40 12/03/24 18:30 12/03/24 19:23 Temperature 98.5 F 97.2 F L 97.8 F Pulse Rate 85 85 89 Respiratory Rate 18 18 18 Blood Pressure 136/69 136/82 129/87 Pulse Oximetry 96 100 98 Oxygen Delivery Room Air 12/03/24 19:30 12/03/24 21:16 12/03/24 22:05 Temperature 98.5 F Pulse Rate 84 84 Respiratory Rate 20 16 Blood Pressure 148/91 H 131/75 Pulse Oximetry 98 97 98 Oxygen Delivery Room Air 12/03/24 22:50 12/04/24 00:00 Temperature Pulse Rate 77 Respiratory Rate Blood Pressure Pulse Oximetry Oxygen Delivery Room Air Exam Narrative: Weight 73.2 kg BMI 28.1 Const: Other: No acute distress, well-developed well-nourished, appears stated age HENMT: Other: Mucous membranes are dry, no oral pharyngeal erythema, head is normocephalic atraumatic Eyes: Other: Pupils are equal and reactive, mild scleral icterus, no conjunctival pallor Neck: Other: No JVD, no lymphadenopathy Resp: Other: Clear to auscultation bilaterally, no increased work of breathing Cardio: Other: Regular rate, regular rhythm, 2+ bilateral radial pedal pulses GI: Other: Soft, nontender, nondistended, normoactive bowel sounds Skin: Other: Mild pallor, non jaundice Neuro: Other: Alert oriented x4, speech is clear but slow, no facial asymmetry, no localizing neurologic deficits noted during the course of conversation Extrem: Other: 5/5 chha strength bilaterally, no clubbing, cyanosis or edema, moves all extremities equally Psych: Other: Pleasant and cooperative, odd affect H&P: Results Labs Labs: Laboratory Tests 12/03/24 16:53 12/03/24 22:41 12/03/24 12/03/24 12/03/24 16:53 17:41 22:41 WBC 12.7 H RBC 4.24 Hgb 12.2 Hct 36.7 L MCV 86.6 MCH 28.8 MCHC 33.2 RDW 13.0 Plt Count 141 L MPV 10.2 Immature Gran % (Auto) 0.5 Neut % (Auto) 86.0 H Lymph % (Auto) 8.9 L [place] % (Auto) 4.2 Eos % (Auto) 0.1 Baso % (Auto) 0.3 Lymph # (Auto) 1.14 [place] # (Auto) 0.5 Eos # (Auto) 0.0 Baso # (Auto) 0.0 Abs Immat Gran (auto) 0.06 H Absolute Neuts (auto) 11.0 H Absolute Nucleated RBC 0.000 Nucleated RBC % 0.0 % Immature Plt Fraction 4.0 PT 14.1 INR 1.1 APTT 30.2 Puncture Site Right radial ABG pH 7.498 H ABG pCO2 29.8 L ABG pO2 65.4 L ABG PO2/FiO2 Ratio 3.11 ABG HCO3 22.6 ABG O2 Saturation 94.7 L ABG O2 Content 16.9 ABG Base Excess 0.3 A-a Gradient 48.6 Oxyhemoglobin 92.3 Carboxyhemoglobin 1.0 Methemoglobin 0.3 Reduced Hemoglobin 6.4 H Total Hemoglobin 13.0 O2 Delivery Device Room air O2 Liters/Min Not Reportable FiO2 21 Sodium 120 L 129 L Potassium 3.2 L 2.8 L* Chloride 83 L 96 L Carbon Dioxide 22 24 Anion Gap 15 H 9 BUN 28 H 21 H Creatinine 0.87 0.75 Estim Creat Clear Calc 46 54 Estimated GFR > 60 > 60 Glucose 84 85 Calcium 7.5 L 8.0 L Magnesium 1.7 Total Bilirubin 1.3 AST 46 H ALT 19 Alkaline Phosphatase 82 Total Protein 7.3 Albumin 4.0 Urine Color Yellow Urine Appearance Clear Urine pH 6.5 Ur Specific [place] 1.009 Urine Protein Negative Urine Glucose (UA) Negative Urine Ketones Negative Ur Blood (Man) Negative Urine Nitrate Negative Urine Bilirubin Negative Urine Urobilinogen 0.2 Leukocyte Esterase Rfl Negative Impressions Head CT 12/03/24 18:11 Impression: No large acute intracranial hemorrhage or suspicious mass effect. EKG:Test Date: 2024-12-03 16:55:58 Measurements Intervals [place] Rate: 84 P: 63 NM: 178 QRS: 32 QRSD: 106 T: 62 QT: 391 QTc: 465 Interpretive Statements SINUS RHYTHM NONSPECIFIC ST & T-WAVE ABNORMALITY- INF/LAT LEADS BASELINE ARTIFACT- I, II, III, AVR, AVL, AVF, V1-V6 BORDERLINE ECG No previous ECG available for comparison All imaging and EKGs personally reviewed and interpreted. And unless stated otherwise agree with radiologic and cardiology interpretation. Assessment and Plan Assessment and plan (1) Vasovagal syncope: Code(s): R55 - Syncope and collapse Status: Acute (2) Acute hypokalemia: Code(s): E87.6 - Hypokalemia Status: Acute (3) Acute hyponatremia: Code(s): E87.1 - Hypo-osmolality and hyponatremia Status: Acute (4) Dehydration: Code(s): E86.0 - Dehydration Status: Acute (5) Parkinson's disease: Qualifiers: Dyskinesia presence: unspecified whether dyskinesia Fluctuating manifestations: unspecified whether manifestations fluctuate Qualified Code(s): G20.A1 - Parkinson's disease without dyskinesia, without mention of fluctuations Code(s): G20 - Parkinson's disease Status: Acute (6) Major depressive disorder, recurrent, severe with psychotic symptoms: Code(s): F33.3 - Major depressive disorder, recurrent, severe with psychotic symptoms Status: Acute Plan Patient had syncopal event with symptoms consistent with vasovagal syncope. Likely due to a combination of dehydration from bowel prep, straining to have bowel movement and complicating the patient's underlying Parkinson's and possible underlying autonomic dysfunction. Patient received a little over 30 mL/kilos fluid bolus in the ER and her mentation is returned to baseline. She does have some hyponatremia likely due to hypovolemia. Will repeat electrolyte panel in a.m.. Will monitor on telemetry given hypokalemia and syncopal event. Patient has had no rhythm issues on telemetry. EKG was reviewed. Patient received potassium supplementation in the ER but repeat potassium had dropped down. Under additional 80 mEq of p.o. potassium was given over the course of 4 hours. Will repeat electrolyte panel in a.m.. The patient's magnesium was lower limit of normal patient received 2 g magnesium sulfate rider to help assist with potassium absorption. Will resume the patient's home potassium supplement after that time. The patient was undergoing bowel prep for outpatient colonoscopy. The patient did not complete her bowel prep. Will provide Jayleen notification to monument stonecutter regarding patient's admission. Given the patient's symptomatology with bowel prep patient may benefit from bowel prep during hospitalization and attempting the procedure this hospital stay verses outpatient prep again. Will defer decision to monument stonecutter. Will resume the patient's home psychiatric medications and levothyroxine. Patient has been admitted as observation status. MEDICAL DECISION MAKING NARRATIVE -Spoke with the ED provider in detail regarding patient's evaluation, workup and management -Patient seen and examined at bedside -Collaborated with patient's nurse at the bedside in detail and addressed all concerns -Labs, electrolytes, radiology, investigations and test results reviewed -ED/Consult/Nursing/Ancilliary notes on the chart reviewed and appreciated -Spoke with patient and patient was agreeable with plan. Quality VTE Prophylaxis VTE prophylaxis: mechanical ordered (SCDs) Hospitalist [facility] Advance Care Plan I have confirmed that the patient's Advanced Care Plan is present, code status is documented, or surrogate decision maker is listed in patient medical record.: Yes Medication Reconciliation I have utilized all available resources to obtain, update and review the patients current medications (includes all prescriptions, OTC, herbals, cannabis, and nutritional supplements).: Yes
[2024-12-04] MEDS: LEVOTHYROXINE SODIUM 125 MCG TABLET PO (05:39)
[2024-12-04 05:44] LABS: Anion Gap 9 mmol/L (4-12); Blood Urea Nitrogen 17 mg/dL (7-17); Calcium 8.3 mg/dL (8.4-10.2); Carbon Dioxide 23 mmol/L (22-30); Chloride 103 mmol/L (98-107); Estimated CRCL calculation 54 ml/min; Estimated Glomerular Filt Rate > 60; Glucose 76 mg/dL (65-110); Potassium 4.3 mmol/L (3.4-5.0); Sodium 135 mmol/L (137-145)
--- NOTE | 2024-12-04 06:58 | P.PNIM_ITS ---
Progress Note: A&P Assessment and Plan (1) Rectal bleeding: Code(s): K62.5 - Hemorrhage of anus and rectum Status: Acute Assessment and Plan: * Monitor serum electrolytes, CBC, hemoglobin/hematocrit q.8 hours. If hemoglobin drops below 7 transfuse packed red blood cells * Monitor for bloody bowel movements,chest pain,SOB or dizziness/lightheadedness * Pantoprazole BID * DVT Px: SCDs * Avoid anti-coagulations * GI consult * Initiate bowel prep for x2 days - Colonoscopy on 12/06 * Clear liquid diet (2) Vasovagal syncope: Code(s): R55 - Syncope and collapse Status: Acute Assessment and Plan: * Likely secondary to underlying Parkinson's, dehydration from bowel prep and straining from bowel movement * 30 mL/kilos fluid bolus in ER -mentation returned to baseline * Encourage p.o. intake of fluids * PT/OT evaluations (3) Electrolyte abnormality: Code(s): E87.8 - Other disorders of electrolyte and fluid balance, not elsewhere classified Status: Acute Assessment and Plan: * Hyponatremia/hypokalemia in ED * Low Na like 2/2 to hypovolemia * K supplementation given in ED but repeat showed decreased K+ - given 80 meq over course of next 4 hours * Also found to have Hypomagnesemia - given 2g Mg sulfate rider * 12/04: K 4.3, Na 135, Mg 1.7 * Monitor daily labs (4) Dehydration: Code(s): E86.0 - Dehydration Status: Acute Assessment and Plan: * Likely secondary to bowel prep after colonoscopy * Continue gentle IV fluid hydration but encourage p.o. intake as well * Clear liquid diet at this time for bowel prep for colonoscopy on (5) Parkinson's disease: Qualifiers: Dyskinesia presence: unspecified whether dyskinesia Fluctuating candy festations: unspecified whether manifestations fluctuate Qualified Code(s): G20.A1 - Parkinson's disease without dyskinesia, without mention of fluctuations Code(s): G20 - Parkinson's disease Status: Acute Assessment and Plan: * Continue at-home medications (6) Major depressive disorder, recurrent, severe with psychotic symptoms: Code(s): F33.3 - Major depressive disorder, recurrent, severe with psychotic symptoms Status: Acute Assessment and Plan: * Continue at home medications (7) Elevated AST (SGOT): Code(s): R74.01 - Elevation of levels of liver transaminase levels Status: Acute Assessment and Plan: * On chart review, appears to be an acute elevation * No RUQ on exam * Continue to monitor daily labs Subjective Date/time seen: 12/04/24 06:58 Interval history: 74-year-old female with a past medical history of Parkinson's disease, prior CVA, post-polio syndrome, schizophrenia, multiple sclerosis and hypothyroidism who presented to the ER after having transient change in mental status bile having a bowel movement on the toilet. 12/04/2024 Patient sitting comfortably in bed at time of examination. Denies any a abdominal pain, chest pain, shortness a breath, or nausea/vomiting at this time. GI consulted regarding rectal bleeding/colonoscopy, recommend starting 2 day bowel prep at this time with colonoscopy planned for the . Patient is amenable to this plan and has no complaints or concerns at this time. Still has an elevated white count of 12.1 but has no major electrolyte abnormalities at this time. Review of Systems Review of Systems: Despite being alert oriented x4 the patient is a poor historian in subsequently review of systems is limited. Exam Narrative: Weight 73.2 kg BMI 28.1 Const: Other: No acute distress, well-developed well-nourished, appears stated age HENMT: Other: Mucous membranes are dry, no oral pharyngeal erythema, head is normocephalic atraumatic Eyes: Other: Pupils are equal and reactive, mild scleral icterus, no conjunctival pallor Neck: Other: No JVD, no lymphadenopathy Resp: Other: Clear to auscultation bilaterally, no increased work of breathing Cardio: Other: Regular rate, regular rhythm, 2+ bilateral radial pedal pulses GI: Other: Soft, nontender, nondistended, normoactive bowel sounds Skin: Other: Mild pallor, non jaundice Neuro: Other: Alert oriented x4, speech is clear but slow, no facial asymmetry, no localizing neurologic deficits noted during the course of conversation Extrem: Other: 5/5 denture finisher strength bilaterally, no clubbi ng, cyanosis or edema, moves all extremities equally Psych: Other: Pleasant and cooperative, odd affect Objective Data Vital Signs Vital Signs: Vital Signs - 24 hr 12/03/24 16:40 12/03/24 18:30 12/03/24 19:23 Temperature 98.5 F 97.2 F L 97.8 F Pulse Rate 85 85 89 Respiratory Rate 18 18 18 Blood Pressure 136/69 136/82 129/87 Pulse Oximetry 96 100 98 Oxygen Delivery Room Air 12/03/24 19:30 12/03/24 21:16 12/03/24 22:05 Temperature 98.5 F Pulse Rate 84 84 Respiratory Rate 20 16 Blood Pressure 148/91 H 131/75 Pulse Oximetry 98 97 98 Oxygen Delivery Room Air 12/03/24 22:50 12/04/24 00:00 12/04/24 04:00 Temperature Pulse Rate 77 80 Respiratory Rate Blood Pressure Pulse Oximetry Oxygen Delivery Room Air 12/04/24 06:00 Temperature 97.1 F L Pulse Rate 76 Respiratory Rate 18 Blood Pressure 124/60 Pulse Oximetry 98 Oxygen Delivery Intake/Output Intake/Output: Intake & Output 12/01/24 12/02/24 12/03/24 12/04/24 23:59 23:59 23:59 23:59 Intake Total 2400 350 Output Total 1300 Balance 2400 -950 Meds/Results Medications: Active Medications Generic Name Dose Route Start Last Admin Trade Name Freq PRN Reason Stop Dose Admin Acetaminophen 650 mg 12/03/24 20:46 Acetaminophen 325 Mg Tablet PO Q4H PRN Mild Pain (1-3) or Fever Albuterol 2 puff 12/03/24 22:32 Albuterol Sulfate (*Sp) Aerosol 1 Puff INHALATION Q4H PRN shortness of breath or wheezing Carbidopa/Levodopa 2 tablet 12/03/24 22:50 12/04/24 05:39 Carbidopa/Levodopa 25/100 Mg Tablet PO 2 tablet Q8HR AMILCAR Administration Citalopram Hydrobromide 20 mg 12/04/24 09:00 Citalopram Hydrobromide 20 Mg Tablet PO DAILY AMILCAR Clonazepam 0.5 mg 12/04/24 09:00 Clonazepam (*Crx) 0.5 Mg Tablet PO DAILY [facility]ILCAR Indapamide 2.5 mg 12/04/24 09:00 Indapamide 2.5 Mg Tablet PO DAILY AMILCAR Lamotrigine 200 mg 12/04/24 09:00 Lamotrigine 100 Mg Tablet PO DAILY [facility] Levothyroxine Sodium 125 mcg 12/04/24 06:30 12/04/24 05:39 Levothyroxine Sodium 125 Mcg Tablet PO 125 mcg DAILY@0630 AMILCAR Administration Montelukast Sodium 10 mg 12/04/24 09:00 Montelukast Sodium 10 Mg Tablet PO DAILY [facility]IL[facility] Olanzapine 5 mg 12/04/24 09:00 Olanzapine 5 Mg Tablet PO QAM [facility] Olanzapine 2.5 mg 12/04/24 09:00 Olanzapine 2.5 Mg Tablet PO QAM [facility] Ondansetron HCl 4 mg 12/03/24 20:46 Ondansetron Inj 4 Mg/2 Ml Vial IV PUSH Q4H PRN Nausea Potassium Chloride 10 meq 12/04/24 09:00 Potassium Chloride 10 Meq Er Tablet PO DAILY [facility] Quetiapine Fumarate 100 mg 12/03/24 22:50 12/04/24 00:16 Quetiapine Fumarate 100 Mg Tablet PO 100 mg HS [facility] Administration Quetiapine Fumarate 50 mg 12/03/24 22:50 12/04/24 00:15 Quetiapine Fumarate 25 Mg Tablet PO 50 mg HS [facility] Administration Fluticasone/Salmeterol 2 puff 12/03/24 22:45 12/04/24 00:57 Fluticasone/Salmeterol 115-21 Mcg Inhaler 1 Puff INHALATION Not Given Q12HRT [facility] Radiology Results: ITS Impressions Head CT 12/03/24 18:11 Impression: No large acute intracranial hemorrhage or suspicious mass effect. Labs Labs: Laboratory Results - last 24 hr 12/03/24 12/03/24 12/03/24 16:53 17:41 22:41 WBC 12.7 H RBC 4.24 Hgb 12.2 Hct 36.7 L MCV 86.6 MCH 28.8 MCHC 33.2 RDW 13.0 Plt Count 141 L MPV 10.2 Immature Gran % (Auto) 0.5 Neut % (Auto) 86.0 H Lymph % (Auto) 8.9 L [place] % (Auto) 4.2 Eos % (Auto) 0.1 Baso % (Auto) 0.3 Lymph # (Auto) 1.14 [place] # (Auto) 0.5 Eos # (Auto) 0.0 Baso # (Auto) 0.0 Abs Immat Gran (auto) 0.06 H Absolute Neuts (auto) 11.0 H Absolute Nucleated RBC 0.000 Nucleated RBC % 0.0 % Immature Plt Fraction 4.0 PT 14.1 INR 1.1 APTT 30.2 Puncture Site Right radial ABG pH 7.498 H ABG pCO2 29.8 L ABG pO2 65.4 L ABG PO2/FiO2 Ratio 3.11 ABG HCO3 22.6 ABG O2 Saturation 94.7 L ABG O2 Content 16.9 ABG Base Excess 0.3 A-a Gradient 48.6 Oxyhemoglobin 92.3 Carboxyhemoglobin 1.0 Methemoglobin 0.3 Reduced Hemoglobin 6.4 H Total Hemoglobin 13.0 O2 Delivery Device Room air O2 Liters/Min Not Reportable FiO2 21 Sodium 120 L 129 L Potassium 3.2 L 2.8 L* Chloride 83 L 96 L Carbon Dioxide 22 24 Anion Gap 15 H 9 BUN 28 H 21 H Creatinine 0.87 0.75 Estim Creat Clear Calc 46 54 Estimated GFR > 60 > 60 Glucose 84 85 Calcium 7.5 L 8.0 L Magnesium 1.7 Total Bilirubin 1.3 AST 46 H ALT 19 Alkaline Phosphatase 82 Total Protein 7.3 Albumin 4.0 Urine Color Yellow Urine Appearance Clear Urine pH 6.5 Ur Specific [facility] 1.009 Urine Protein Negative Urine Glucose (UA) Negative Urine Ketones Negative Ur Blood (Man) Negative Urine Nitrate Negative Urine Bilirubin Negative Urine Urobilinogen 0.2 Leukocyte Esterase Rfl Negative 12/04/24 04:50 WBC RBC Hgb Hct MCV MCH MCHC RDW Plt Count MPV Immature Gran % (Auto) Neut % (Auto) Lymph % (Auto) [place] % (Auto) Eos % (Auto) Baso % (Auto) Lymph # (Auto) [place] # (Auto) Eos # (Auto) Baso # (Auto) Abs Immat Gran (auto) Absolute Neuts (auto) Absolute Nucleated RBC Nucleated RBC % % Immature Plt Fraction PT INR APTT Puncture Site ABG pH ABG pCO2 ABG pO2 ABG PO2/FiO2 Ratio ABG HCO3 ABG O2 Saturation ABG O2 Content ABG Base Excess A-a Gradient Oxyhemoglobin Carboxyhemoglobin Methemoglobin Reduced Hemoglobin Total Hemoglobin O2 Delivery Device O2 Liters/Min FiO2 Sodium 135 L Potassium 4.3 Chloride 103 Carbon Dioxide 23 Anion Gap 9 BUN 17 Creatinine 0.76 Estim Creat Clear Calc 54 Estimated GFR > 60 Glucose 76 Calcium 8.3 L Magnesium Total Bilirubin AST ALT Alkaline Phosphatase Total Protein Albumin Urine Color Urine Appearance Urine pH Ur Specific [facility] Urine Protein Urine Glucose (UA) Urine Ketones Ur Blood (Man) Urine Nitrate Urine Bilirubin Urine Urobilinogen Leukocyte Esterase Rfl Quality VTE Prophylaxis VTE prophylaxis: mechanical ordered (SCDs)
[2024-12-04 07:05] LABS: Hematocrit 42.1 % (37.0-47.0); Hemoglobin 13.6 g/dL (12.0-15.0); Immature Granulocyte Percent A 0.5 % (0-0.5); Lymphocytes Absolute Auto 1.04 K/mm3 (0.9-3.2); Mean Corpuscular HGB Conc 32.3 g/dl (32-36); Mean Corpuscular Hemoglobin 28.9 pg (26-34); Mean Corpuscular Volume 89.4 fl (80-100); Nucleated Red Blood Cells Absolute Auto 0.000 K/mm3 (0.0-0.012); Nucleated Red Blood Cells Perc 0.0 % (0.0-0.2); Platelet Count Result 148 k/mm3 (150-375); Red Blood Count 4.71 M/mm3 (4.2-5.4); White Blood Count 12.1 K/mm3 (4.5-10.0)
[2024-12-04 07:23] LABS: Alanine Aminotransferase 10 U/L (6-35); Albumin Level 3.8 g/dL (3.5-5.1); Alkaline Phosphatase 77 U/L (38-126); Aspartate Amino Transferase 144 U/L (14-36); Bilirubin,Total 1.0 mg/dL (0.2-1.3); Total Protein 7.1 g/dL (6.3-8.2)
--- NOTE | 2024-12-04 08:03 | P.CONGI_ITS ---
Assessment and Plan Assessment and plan (1) Rectal bleeding: Code(s): K62.5 - Hemorrhage of anus and rectum Status: Acute (2) Internal hemorrhoids: Code(s): K64.8 - Other hemorrhoids Status: Acute (3) Family hx of colon cancer: Code(s): Z80.0 - Family history of malignant neoplasm of digestive organs Status: Acute (4) Vasovagal syncope: Code(s): R55 - Syncope and collapse Status: Acute (5) Acute hyponatremia: Code(s): E87.1 - Hypo-osmolality and hyponatremia Status: Acute (6) Acute hypokalemia: Code(s): E87.6 - Hypokalemia Status: Acute (7) Dehydration: Code(s): E86.0 - Dehydration Status: Acute (8) Elevated AST (SGOT): Code(s): R74.01 - Elevation of levels of liver transaminase levels Status: Acute Plan 1. Hematochezia/hemorrhoids/family history of colon cancer (father): Last complete colonoscopy was performed 05/16/2028 which time she was noted to have medium-sized internal hemorrhoids the colonoscopy was otherwise unremarkable a 5 year repeat colonoscopy was attempted 09/18/2024 but due to poor prep colonoscopy cannot be completed. Following her colonoscopy she was recommended to have a repeat in 1 year with a 2 day bowel prep. Patient was seen by her PCP on November 06 with complaints of rectal bleeding and her colonoscopy was scheduled again by PCP. During her bowel preparation she started having weakness and altered mental status and was admitted on 12/03/2024 for hyponatremia, hypokalemia and vasovagal syncope. Patient states that recently she has had 5 episodes bright red blood per rectum. Prior to admission she was having regular daily bowel movements and denies any rectal pain or symptomatic hemorrhoids. GI has been consulted to schedule a colonoscopy while she is inpatient so that she can be monitored during bowel prep. Labs today showed WBCs 12, HGB 14, HCT 42, MCV 89, platelets 148. Patient denies any signs of active bleeding since admission. * Will plan for colonoscopy with Dr. Shelton on the * Start 2 day bowel prep today * Magnesium citrate today and regular bowel prep tomorrow * Clear liquid diet * monitor electrolytes closely 2. Hyponatremia/hypokalemia/dehydration: On admission patient was found to have a sodium of 120 and potassium of 3.2. Labs today show sodium 135, potassium 4.3. * Primary care team to continue monitoring electrolytes especially during preparation correct as needed 3. Vasovagal syncope: Likely related to problem #2 * primary care team managing 4. Elevated AST: Patient with no history of LFT elevation prior to this admission. Labs today show normal LFT's except elevated AST at 144. * Likely acute elevation * continue to monitor Thank you very much for allowing me to share in the care of this very nice patient. This report may have been done utilizing a voice recognition system. Attempts have been made to correct errors. However, there may be uncorrected grammatical, spelling, and recognition errors present. GI Consult Note Consult date/time: 12/04/24 08:03 Reason for consult: GI bleed and colonoscopy request HPI: Vanessa Arechiga is a 74 year old female with PMSH of MS, Parkinson's, polio as a child, hypothyroidism, schizophrenia, asthma, history of CVA, personal history of colon polyps and family history of colon cancer. Patient presented to the emergency room yesterday with complaints of weakness and altered mental status that occurred during an attempted bowel prep. Patient was admitted for hyponatremia, hypokalemia and vasovagal syncope. GI has been consulted for GI bleed and colonoscopy. Patient had an attempted colonoscopy 09/18/2024 but due to poor preparation she was advised to repeat the colonoscopy in 1 year with a 2 day prep. Patient was then seen by her PCP on November 06 with complaints of rectal bleeding and was scheduled again for her colonoscopy. Patient has not been seen in the GI office previous to this. Patient states that prior to her admission she was having regular daily bowel movements that were formed and non urgent. Patient has had a total of 5 episodes of bright red blood per rectum but denies any bleeding since admission. She denies abdominal pain, nausea, vomiting, bloating, odynophagia, dysphagia, reflux, regurgitation, appetite loss, or weight loss. The patient is having [ ] bowel movements [ ] that are formed and non urgent. Denies diarrhea, constipation, hematochezia, melena, fecal incontinence, or rectal pain. ENDOSCOPY HISTORY: EGD: Patient has never had an EGD COLONOSCOPY: 09/18/[address] De La Rosa for family Hx of CRC and screening Findings: Attempted colonoscopy, not performed due to lack of prep 1 year repeat with 2 day prep recommended COLONOSCOPY: 05/16/[address] Garvin for family Hx of CRC Findings: In the rectum a few medium size uncomplicated internal hemorrhoids were seen that were not actively bleeding 5 year repeat recommended LABS AND STOOL STUDIES: Labs : Sodium 135, potassium 4.3, BUN 17, creatinine 0.76, GFR >60, calcium 8.3 WBC 12, Hgb 14, Hct 42, MCV 89, platelets 148, INR 1.1 Total bilirubin 1.0, AST 144, ALT 10, Alkaline Phos 77, albumin 3.8 Labs 12/03/2024: Sodium 120, potassium 3.2, BUN 28, creatinine 0.87, GFR >60, calcium 7.5 WBC 13, Hgb 12, Hct 37, MCV 87, platelets 141, INR 1.1 Total bilirubin 1.3, AST 46, ALT 19, Alkaline Phos 82, albumin 4.0 Labs 10/02/2024: Sodium 141, potassium 3.2, BUN 34, creatinine 0.95, GFR 58, calcium 9.0 WBC 6, Hgb 13, Hct 43, MCV 92, platelets 199 Total bilirubin 0.7, AST 27, ALT 12, Alkaline Phos 74, albumin 4.1 Triglyceride 70, B12 545, vitamin-D 15, RBC folate 529 IMAGING: No recent GI imaging Review of Systems 2 Constitutional: Constitutional: Reports as per HPI ENT: Reports as per HPI Cardiovascular: Cardiovascular: Reports as per HPI, Denies chest pain and Denies dyspnea Respiratory: Respiratory: Denies cough and Denies dyspnea Gastrointestinal: Gastrointestinal: Reports as per HPI Musculoskeletal: Musculoskeletal: Reports as per HPI Integumentary/Breasts: Skin/Breast: Reports as per HPI Psychiatric: Psychiatric: Reports as per HPI Endocrine: Endocrine: Reports no additional endocrine complaints Hematologic/Lymphatic: Hematologic/Lymphatic: Reports no additional hematologic/lymphatic complaints [facility] Past Medical History Medical History Cerebrovascular disease Normal colonoscopy 05/21 Repeat 05/26 History of poliomyelitis 195 Schizophrenia Hypothyroidism Asthma Parkinson's disease 2018 Multiple sclerosis Surgical History Surgical History S/P tonsillectomy and adenoidectomy Family History Family History Father Diabetes mellitus Carcinoma of colon Colon polyp Mother Hypertension Family history of malignant neoplasm of breast in first degree relative Acute myocardial infarction Breast cancer Depression Heart disease Other Heart disease Other Asthma Social History Social History (Updated 12/04/24 @ 06:33 by Almaz Ta, DO) Social History: Patient is single and has never been . She lives in her own home. She does not have any children. She retired from the [employer]. Code status: Full code Surrogate decision maker: Helen Culp Smoking status: Never smoker Second hand tobacco smoke exposure: No Alcohol intake: never Substance use: never Do You Feel Safe in your Home?: Yes Lack of Transportation: No Lack of Food: Never True Current Housing: I Have Housing Concerned About Future Housing: No Difficulty Paying Gas/Electric Bills: No Difficulty Paying for Meds: YES Currently Unemployed: No Education: Master's Degree or Higher Difficulty w/ Childcare or Family Care: No Living arrangements: alone Occupation/Education: retired Gender identity (if verbalized by the patient): Female Sexual Orientation (if Verbalized by the Patient): Straight or Heterosexual Spiritual care concerns: No Agree to blood products: Yes Meds Home Medications and Allergies Home Medications ?Medication ?Instructions ?Recorded ?Confirmed ?Type citalopram 20 mg tablet 20 mg PO DAILY 05/09/19 12/03/24 History clonazepam 0.5 mg tablet 0.5 mg PO DAILY 05/09/19 12/03/24 History fluticasone 250 mcg-salmeterol 50 1 ea inhalation DAILY 05/09/19 12/03/24 History mcg/dose blistr powdr for inhalation (Advair Diskus) montelukast 10 mg tablet 10 mg PO DAILY 05/09/19 12/03/24 History lamotrigine 200 mg tablet 200 mg PO DAILY #90 tabs 08/09/22 12/03/24 Rx levothyroxine 125 mcg tablet See Rx Instructions .Route 12/22/23 12/03/24 Rx .COMPLEX #100 tabs furosemide 40 mg tablet See Rx Instructions .Route 07/09/24 12/03/24 Rx .COMPLEX #100 tabs potassium chloride 10 mEq See Rx Instructions .Route 08/24/24 12/03/24 Rx capsule,extended release .COMPLEX #100 caps meclizine 25 mg tablet See Rx Instructions .Route 10/08/24 12/03/24 Rx .COMPLEX #400 tabs carbidopa 25 mg-levodopa 100 mg See Rx Instructions .Route 10/09/24 12/03/24 Rx tablet .COMPLEX #600 tabs cholecalciferol (vitamin D3) 1,250 1,250 mcg PO WEEKLY #14 caps 10/09/24 12/03/24 Rx mcg (50,000 unit) capsule interferon beta-1b 0.3 mg See Rx Instructions .Route 10/09/24 12/03/24 Rx subcutaneous kit (Betaseron) .COMPLEX #14 ea indapamide 2.5 mg tablet 2.5 mg PO DAILY #100 tabs 11/21/24 12/03/24 Rx albuterol sulfate 90 mcg/actuation 2 puff inhalation Q4H PRN 12/03/24 12/03/24 History aerosol inhaler shortness of breath or wheezing olanzapine 7.5 mg tablet 7.5 mg PO DAILY 12/03/24 12/03/24 History quetiapine 150 mg tablet 150 mg PO DAILY 12/03/24 12/03/24 History raloxifene 60 mg tablet 60 mg PO DAILY 12/03/24 12/03/24 History Allergies Allergy/AdvReac Type Severity Reaction Status Date / Time wool Allergy Severe Rash Verified 12/03/24 22:07 Penicillins Allergy Intermediate Rash Verified 12/03/24 22:07 Vital Signs Vital Signs - 24 hr 12/03/24 16:40 12/03/24 18:30 12/03/24 19:23 Temperature 98.5 F 97.2 F L 97.8 F Pulse Rate 85 85 89 Respiratory Rate 18 18 18 Blood Pressure 136/69 136/82 129/87 Pulse Oximetry 96 100 98 Oxygen Delivery Room Air 12/03/24 19:30 12/03/24 21:16 12/03/24 22:05 Temperature 98.5 F Pulse Rate 84 84 Respiratory Rate 20 16 Blood Pressure 148/91 H 131/75 Pulse Oximetry 98 97 98 Oxygen Delivery Room Air 12/03/24 22:50 12/04/24 00:00 12/04/24 04:00 Temperature Pulse Rate 77 80 Respiratory Rate Blood Pressure Pulse Oximetry Oxygen Delivery Room Air 12/04/24 06:00 Temperature 97.1 F L Pulse Rate 76 Respiratory Rate 18 Blood Pressure 124/60 Pulse Oximetry 98 Oxygen Delivery Exam 2 Const: General: cooperative, healthy appearing, comfortable, no acute distress and well developed Orientation/consciousness: oriented to person, oriented to place, oriented to time and patient oriented x3 HENMT: Head: normal to inspection, normocephalic and atraumatic Mouth: Yes Normal oral and palatal mucosa present and Yes moist mucous membranes Eyes: General: appearance normal, both eyes and all related structures C onjunctivae: conjunctivae normal Sclera: sclerae normal Pupils: Equal, round and reactive pupils present Neck: Neck: normal visual inspection Chest: Chest palpation & inspection: normal inspection of the chest Resp: Effort & Inspection: normal respiratory effort and able to speak in complete sentences Auscultation: clear to auscultation bilaterally Cardio: Jugular venous distension: no JVD Rate: regular rate Rhythm: r egular rhythm Heart sounds: S1 normal heart sound present and S2 normal heart sound present GI: Inspection: normal to inspection GI Palp: Yes Soft to palpation and Yes No hepatosplenomegaly present Auscultation: normal bowel sounds Rectal Exam: deferred Skin: General skin exam: normal color and no rashes or lesions noted Neuro: General: oriented to person, oriented to place, oriented to time and patient oriented x3 Cranial nerves: Yes Equal, round and reactive pupils present Speech: normal speech Extrem: General: normal to inspection and no clubbing, cyanosis or edema Psych: Appearance: grossly normal and well kempt Affect: normal affect Results Labs 12/04/24 04:50 12/04/24 04:50 Labs: Short CBC 12/03/24 12/04/24 Range/Units 16:53 04:50 WBC 12.7 H 12.1 H (4.5-10.0) K/mm3 Hgb 12.2 13.6 (12.0-15.0) g/dL Hct 36.7 L 42.1 (37.0-47.0) % Plt Count 141 L 148 L (150-375) k/mm3 [facility] 08/08/2412/03/24 12/04/24 16:53 22:41 04:50 Sodium 120 L 129 L 135 L Potassium 3.2 L 2.8 L* 4.3 Chloride 83 L 96 L 103 Carbon Dioxide 22 24 23 BUN 28 H 21 H 17 Creatinine 0.87 0.75 0.76 Glucose 84 85 76 Calcium 7.5 L 8.0 L 8.3 L Liver Function 12/03/24 12/04/24 Range/Units 16:53 04:50 Total Bilirubin 1.3 1.0 (0.2-1.3) mg/dL Direct Bilirubin 0.0 (0-0.3) mg/dL AST 46 H 144 H (14-36) U/L ALT 19 10 (6-35) U/L Alkaline Phosphatase 82 77 (38-126) U/L Albumin 4.0 3.8 (3.5-5.1) g/dL Urine 12/03/24 Range/Units 16:53 Urine Color Yellow (Yellow) Urine Appearance Clear (Clear) Urine pH 6.5 (5.0-9.0) Ur Specific [place] 1.009 (1.001-1.035) Urine Protein Negative (Negative) mg/dL Urine Glucose (UA) Negative (Negative) mg/dL
[2024-12-04] MEDS: FLUTICASONE/SALMETEROL 115-21 MCG INHALER 1 PUFF 2 PUFF INHALATION ×2 (08:20→20:37)
[2024-12-04] MEDS: CITALOPRAM HYDROBROMIDE 20 MG TABLET PO (08:57)
[2024-12-04] MEDS: clonazePAM (*CRX) 0.5 MG TABLET PO (08:58)
[2024-12-04] MEDS: MONTELUKAST SODIUM 10 MG TABLET PO (08:58)
[2024-12-04] MEDS: INDAPAMIDE 2.5 MG TABLET PO (08:58)
[2024-12-04] MEDS: POTASSIUM CHLORIDE 10 MEQ ER TABLET PO (08:59)
[2024-12-04] MEDS: MAGNESIUM CITRATE 300 ML BTL PO (12:04)
[2024-12-04] MEDS: SODIUM CHLORIDE 0.9% IV 1,000 ML 75 ML IV CONT (14:28)
[2024-12-05] VITALS (12 sets, daily range): BP systolic 110–137; BP diastolic 61–90; PULSE 65–96; RESP 14–18; TEMP 36.5–36.6; O2SAT 92–100
[2024-12-05] MEDS: SODIUM CHLORIDE 0.9% IV 1,000 ML 75 ML IV CONT ×2 (03:22→16:12)
[2024-12-05 05:04] LABS: Hematocrit 34.2 % (37.0-47.0); Hemoglobin 10.5 g/dL (12.0-15.0); Immature Granulocyte Percent A 0.5 % (0-0.5); Immature Platelet Fraction Pct 2.7 % (0.9-11.2); Lymphocytes Absolute Auto 1.65 K/mm3 (0.9-3.2); Mean Corpuscular HGB Conc 30.7 g/dl (32-36); Mean Corpuscular Hemoglobin 29.0 pg (26-34); Mean Corpuscular Volume 94.5 fl (80-100); Nucleated Red Blood Cells Absolute Auto 0.000 K/mm3 (0.0-0.012); Nucleated Red Blood Cells Perc 0.0 % (0.0-0.2); Platelet Count Result 109 k/mm3 (150-375); Red Blood Count 3.62 M/mm3 (4.2-5.4); White Blood Count 9.8 K/mm3 (4.5-10.0)
[2024-12-05] MEDS: LEVOTHYROXINE SODIUM 125 MCG TABLET PO (06:07)
[2024-12-05] MEDS: CARBIDOPA/LEVODOPA 25/100 MG TABLET 2 TABLET PO ×3 (06:07→20:56)
--- NOTE | 2024-12-05 06:54 | P.PNIM_ITS ---
Progress Note: A&P Assessment and Plan (1) Rectal bleeding: Code(s): K62.5 - Hemorrhage of anus and rectum Status: Acute Assessment and Plan: * Monitor serum electrolytes, CBC, hemoglobin/hematocrit q.8 hours. If hemoglobin drops below 7 transfuse packed red blood cells * Monitor for bloody bowel movements,chest pain,SOB or dizziness/lightheadedness * Pantoprazole BID * DVT Px: SCDs * Avoid anti-coagulations * GI consult * Initiate bowel prep for x2 days - Colonoscopy on 12/06 * Clear liquid diet * Colonoscopy tomorrow (2) Vasovagal syncope: Code(s): R55 - Syncope and collapse Status: Acute Assessment and Plan: * Likely secondary to underlying Parkinson's, dehydration from bowel prep and straining from bowel movement * 30 mL/kilos fluid bolus in ER -mentation returned to baseline * Encourage p.o. intake of fluids * PT/OT evaluations (3) Electrolyte abnormality: Code(s): E87.8 - Other disorders of electrolyte and fluid balance, not elsewhere classified Status: Acute Assessment and Plan: * Hyponatremia/hypokalemia in ED * Low Na like 2/2 to hypovolemia * K supplementation given in ED but repeat showed decreased K+ - given 80 meq over course of next 4 hours * Also found to have Hypomagnesemia - given 2g Mg sulfate rider * 12/04: K 4.3, Na 135, Mg 1.7 * Monitor daily labs (4) Dehydration: Code(s): E86.0 - Dehydration Status: Acute Assessment and Plan: * Likely secondary to bowel prep after colonoscopy * Continue gentle IV fluid hydration but encourage p.o. intake as well * Clear liquid diet at this time for bowel prep for colonoscopy on (5) Parkinson's disease: Qualifiers: Dyskinesia presence: unspecified whether dyskinesia Fluctuating manifestations: unspecified whether manifestations fluctuate Qualified Code(s): G20.A1 - Parkinson's disease without dyskinesia, without mention of fluctuations Code(s): G20 - Parkinson's disease Status: Acute Assessment and Plan: * Continue at-home medications (6) Major depressive disorder, recurrent, severe with psychotic symptoms: Code(s): F33.3 - Major depressive disorder, recurrent, severe with psychotic symptoms Status: Acute Assessment and Plan: * Continue at home medications (7) Elevated AST (SGOT): Code(s): R74.01 - Elevation of levels of liver transaminase levels Status: Acute Assessment and Plan: * On chart review, appears to be an acute elevation * No RUQ on exam * Continue to monitor daily labs Subjective Date/time seen: 12/05/24 06:54 Interval history: 74-year-old female with a past medical history of Parkinson's disease, prior CVA, post-polio syndrome, schizophrenia, multiple sclerosis and hypothyroidism who presented to the ER after having transient change in mental status bile having a bowel movement on the toilet. 12/05/2024 Patient sitting comfortably in bed at time of examination. No acute overnight events. Denies any abdominal pain, nausea/vomiting, bloody stools, or chest pain. Plan for colonoscopy tomorrow, bowel prep starting at 8:00 p.m. tonight. Review of Systems Review of Systems: Despite being alert oriented x4 the patient is a poor historian in subsequently review of systems is limited. Exam Narrative: Weight 73.2 kg BMI 28.1 Const: Other: No acute distress, well-developed well-nourished, appears stated age HENMT: Other: Mucous membranes are dry, no oral pharyngeal erythema, head is normocephalic atraumatic Eyes: Other: Pupils are equal and reactive, mild scleral icterus, no conjunctival pallor Neck: Other: No JVD, no lymphadenopathy Resp: Other: Clear to auscultation bilaterally, no increased work of breathing Cardio: Other: Regular rate, regular rhythm, 2+ bilateral radial pedal pulses GI: Other: Soft, nontender, nondistended, normoactive bowel sounds Skin: Other: Mild pallor, non jaundice Neuro: Other: Alert oriented x4, speech is clear but slow, no facial asymmetry, no localizing neurologic deficits noted during the course of conversation Extrem: Other: 5/5 asphalt tamper strength bilaterally, no clubbi ng, cyanosis or edema, moves all extremities equally Psych: Other: Pleasant and cooperative, odd affect Objective Data Vital Signs Vital Signs: Vital Signs - 24 hr 12/04/24 08:00 12/04/24 08:00 12/04/24 08:20 Temperature Pulse Rate 79 93 Respiratory Rate 20 Blood Pressure Pulse Oximetry 97 Oxygen Delivery Room Air Room Air 12/04/24 08:20 12/04/24 12:00 12/04/24 13:36 Temperature 97.5 F L Pulse Rate 93 78 81 Respiratory Rate 20 14 Blood Pressure 103/48 L Pulse Oximetry 100 Oxygen Delivery 12/04/24 16:00 12/04/24 20:00 12/04/24 20:00 Temperature Pulse Rate 79 85 88 Respiratory Rate 16 Blood Pressure Pulse Oximetry 96 Oxygen Delivery Room Air 12/04/24 20:37 12/04/24 21:16 12/05/24 00:00 Temperature 98.4 F Pulse Rate 85 76 Respiratory Rate 16 Blood Pressure 109/70 Pulse Oximetry 95 96 Oxygen Delivery Room Air 12/05/24 04:00 12/05/24 05:49 Temperature 97.8 F Pulse Rate 65 72 Respiratory Rate 18 Blood Pressure 137/90 Pulse Oximetry 92 Oxygen Delivery Intake/Output Intake/Output: Intake & Output 12/02/24 12/03/24 12/04/24 12/05/24 23:59 23:59 23:59 23:59 Intake Total 2400 2480 1217.5 Output Total 2450 300 Balance 2400 30 917.5 Meds/Results Medications: Active Medications Generic Name Dose Route Start Last Admin Trade Name Freq PRN Reason Stop Dose Admin Acetaminophen 650 mg 12/03/24 20:46 Acetaminophen 325 Mg Tablet PO Q4H PRN Mild Pain (1-3) or Fever Albuterol 2 puff 12/03/24 22:32 Albuterol Sulfate (*Sp) Aerosol 1 Puff INHALATION Q4H PRN shortness of breath or wheezing Carbidopa/Levodopa 2 tablet 12/03/24 22:50 12/05/24 06:07 Carbidopa/Levodopa 25/100 Mg Tablet PO 2 tablet Q8HR AMILCAR Administration Citalopram Hydrobromide 20 mg 12/04/24 09:00 12/04/24 08:57 Citalopram Hydrobromide 20 Mg Tablet PO 20 mg DAILY AMILCAR Administration Clonazepam 0.5 mg 12/04/24 09:00 12/04/24 08:58 Clonazepam (*Crx) 0.5 Mg Tablet PO 0.5 mg DAILY AMILCAR Administration Sodium Chloride 1,000 mls @ 75 mls/hr 12/04/24 13:30 12/05/24 03:22 Normal Saline Iv IV CONT 75 mls/hr .[id number] AMILCAR Administration Indapamide 2.5 mg 12/04/24 09:00 12/04/24 08:58 Indapamide 2.5 Mg Tablet PO 2.5 mg DAILY AMILCAR Administration Lamotrigine 200 mg 12/04/24 09:00 12/04/24 08:58 Lamotrigine 100 Mg Tablet PO 200 mg DAILY AMILCAR Administration Levothyroxine Sodium 125 mcg 12/04/24 06:30 12/05/24 06:07 Levothyroxine Sodium 125 Mcg Tablet PO 125 mcg DAILY@0630 AMILCAR Administration Montelukast Sodium 10 mg 12/04/24 09:00 12/04/24 08:58 Montelukast Sodium 10 Mg Tablet PO 10 mg DAILY AMILCAR Administration Olanzapine 5 mg 12/04/24 09:00 12/04/24 08:58 Olanzapine 5 Mg Tablet PO 5 mg QAM AMILCAR Administration Olanzapine 2.5 mg 12/04/24 09:00 12/04/24 08:59 Olanzapine 2.5 Mg Tablet PO 2.5 mg QAM AMILCAR Administration Ondansetron HCl 4 mg 12/03/24 20:46 Ondansetron Inj 4 Mg/2 Ml Vial IV PUSH Q4H PRN Nausea Polyethylene Glycol 119 gm 12/05/24 20:00 Polyethylene Glycol 3350 238 Gm Bottle PO 12/06/24 05:01 BID@0500,2000 [facility] Potassium Chloride 10 meq 12/04/24 09:00 12/04/24 08:59 Potassium Chloride 10 Meq Er Tablet PO 10 meq DAILY AMILCAR Administration Quetiapine Fumarate 100 mg 12/03/24 22:50 12/04/24 21:45 Quetiapine Fumarate 100 Mg Tablet PO 100 mg HS AMILCAR Administration Quetiapine Fumarate 50 mg 12/03/24 22:50 12/04/24 21:45 Quetiapine Fumarate 25 Mg Tablet PO 50 mg HS AMILCAR Administration Fluticasone/Salmeterol 2 puff 12/03/24 22:45 12/04/24 20:37 Fluticasone/Salmeterol 115-21 Mcg Inhaler 1 Puff INHALATION 2 puff Q12HRT AMILCAR Administration Radiology Results: ITS Impressions Head CT 12/03/24 18:11 Impression: No large acute intracranial hemorrhage or suspicious mass effect. Labs Labs: Laboratory Results - last 24 hr 12/03/24 12/04/24 12/05/24 16:30 04:50 04:55 WBC 12.1 H 9.8 RBC 4.71 3.62 L Hgb 13.6 10.5 L D Hct 42.1 34.2 L MCV 89.4 94.5 D MCH 28.9 29.0 MCHC 32.3 30.7 L RDW 13.2 13.7 Plt Count 148 L 109 L MPV 10.5 H 10.3 Immature Gran % (Auto) 0.5 0.5 Neut % (Auto) 86.5 H 76.5 H Lymph % (Auto) 8.6 L 16.8 L [place] % (Auto) 4.1 5.1 Eos % (Auto) 0.1 0.8 Baso % (Auto) 0.2 0.3 Lymph # (Auto) 1.04 1.65 [place] # (Auto) 0.5 0.5 Eos # (Auto) 0.0 0.1 Baso # (Auto) 0.0 0.0 Abs Immat Gran (auto) 0.06 H 0.05 H Absolute Neuts (auto) 10.4 H 7.5 H Absolute Nucleated RBC 0.000 0.000 Nucleated RBC % 0.0 0.0 % Immature Plt Fraction 2.7 POC Capillary Glucose 96 Total Bilirubin 1.0 Direct Bilirubin 0.0 AST 144 H ALT 10 Alkaline Phosphatase 77 Total Protein 7.1 Albumin 3.8 Quality VTE Prophylaxis VTE prophylaxis: mechanical ordered (SCDs)
[2024-12-05] MEDS: FLUTICASONE/SALMETEROL 115-21 MCG INHALER 1 PUFF 2 PUFF INHALATION ×2 (07:33→21:16)
[2024-12-05] MEDS: POTASSIUM CHLORIDE 10 MEQ ER TABLET PO (08:51)
[2024-12-05] MEDS: MONTELUKAST SODIUM 10 MG TABLET PO (08:51)
[2024-12-05] MEDS: clonazePAM (*CRX) 0.5 MG TABLET PO (08:51)
[2024-12-05] MEDS: INDAPAMIDE 2.5 MG TABLET PO (08:51)
[2024-12-05] MEDS: CITALOPRAM HYDROBROMIDE 20 MG TABLET PO (08:54)
--- NOTE | 2024-12-05 16:36 | WPDGIPROGNO ---
Progress Note: A&P Assessment and Plan (1) Rectal bleeding: Code(s): K62.5 - Hemorrhage of anus and rectum Status: Acute Assessment and Plan: she presented here with syncope when she was getting bowel prep, admitted for dehydration and abnormal lytes doing better now and started bowel prep again, plan is colonoscopy tomorrow (recent one with poor prep) (2) Vasovagal syncope: Code(s): R55 - Syncope and collapse Status: Acute (3) Electrolyte abnormality: Code(s): E87.8 - Other disorders of electrolyte and fluid balance, not elsewhere classified Status: Acute (4) Parkinson's disease: Qualifiers: Dyskinesia presence: unspecified whether dyskinesia Fluctuating manifestations: unspecified whether manifestations fluctuate Qualified Code(s): G20.A1 - Parkinson's disease without dyskinesia, without mention of fluctuations Code(s): G20 - Parkinson's disease Status: Acute Subjective Date/time seen: 12/05/24 16:36 Interval history: doing better, comfortable Review of Systems Review of Systems: All systems reviewed & are unremarkable except as noted in HPI and below Exam Const: General: comfortable and no acute distress HENMT: Face/Nose/Sinus: Normal nares present Eyes: General: appearance normal, both eyes and all related structures Neck: Neck: no JVD Resp: Auscultation: clear to auscultation bilaterally Cardio: Rate: regular rate Rhythm: regular rhythm GI: Inspection: non-distended GI Palp: Yes Soft to palpation Skin: General skin exam: normal color Neuro: Speech: normal speech Extrem: General: normal to inspection Psych: Mental Status: mental status grossly normal Objective Data Vital Signs Vital Signs: Vital Signs - 24 hr 12/04/24 20:00 12/04/24 20:00 12/04/24 20:37 Temperature Pulse Rate 85 88 Respiratory Rate 16 Blood Pressure Pulse Oximetry 96 95 Oxygen Delivery Room Air Room Air 12/04/24 21:16 12/05/24 00:00 12/05/24 04:00 Temperature 98.4 F Pulse Rate 85 76 65 Respiratory Rate 16 Blood Pressure 109/70 Pulse Oximetry 96 Oxygen Delivery 12/05/24 05:49 12/05/24 07:33 12/05/24 08:02 Temperature 97.8 F Pulse Rate 72 81 Respiratory Rate 18 Blood Pressure 137/90 Pulse Oximetry 92 93 Oxygen Delivery Room Air 12/05/24 08:54 12/05/24 12:00 12/05/24 12:37 Temperature Pulse Rate 85 Respiratory Rate 18 Blood Pressure Pulse Oximetry 93 Oxygen Delivery Room Air Room Air 12/05/24 14:00 12/05/24 14:14 Temperature 97.9 F Pulse Rate 82 Respiratory Rate 16 Blood Pressure 110/61 Pulse Oximetry 100 Oxygen Delivery Room Air Intake/Output Intake/Output: Intake & Output 12/02/24 12/03/24 12/04/24 12/05/24 23:59 23:59 23:59 23:59 Intake Total 2400 2480 3880.0 Output Total 2450 300 Balance 2400 30 3580.0 Meds/Results Medications: Active Medications Generic Name Dose Route Start Last Admin Trade Name Freq PRN Reason Stop Dose Admin Acetaminophen 650 mg 12/03/24 20:46 Acetaminophen 325 Mg Tablet PO Q4H PRN Mild Pain (1-3) or Fever Albuterol 2 puff 12/03/24 22:32 Albuterol Sulfate (*Sp) Aerosol 1 Puff INHALATION Q4H PRN shortness of breath or wheezing Carbidopa/Levodopa 2 tablet 12/03/24 22:50 12/05/24 13:24 Carbidopa/Levodopa 25/100 Mg Tablet PO 2 tablet Q8HR AMILCAR Administration Citalopram Hydrobromide 20 mg 12/04/24 09:00 12/05/24 08:54 Citalopram Hydrobromide 20 Mg Tablet PO 20 mg DAILY AMILCAR Administration Clonazepam 0.5 mg 12/04/24 09:00 12/05/24 08:51 Clonazepam (*Crx) 0.5 Mg Tablet PO 0.5 mg DAILY AMILCAR Administration Sodium Chloride 1,000 mls @ 75 mls/hr 12/04/24 13:30 12/05/24 16:12 Normal Saline Iv IV CONT 75 mls/hr .[id number] AMILCAR Administration Indapamide 2.5 mg 12/04/24 09:00 12/05/24 08:51 Indapamide 2.5 Mg Tablet PO 2.5 mg DAILY AMILCAR Administration Lamotrigine 200 mg 12/04/24 09:00 12/05/24 08:52 Lamotrigine 100 Mg Tablet PO 200 mg DAILY AMILCAR Administration Levothyroxine Sodium 125 mcg 12/04/24 06:30 12/05/24 06:07 Levothyroxine Sodium 125 Mcg Tablet PO 125 mcg DAILY@0630 AMILCAR Administration Montelukast Sodium 10 mg 12/04/24 09:00 12/05/24 08:51 Montelukast Sodium 10 Mg Tablet PO 10 mg DAILY AMILCAR Administration Olanzapine 5 mg 12/04/24 09:00 12/05/24 08:51 Olanzapine 5 Mg Tablet PO 5 mg QAM AMILCAR Administration Olanzapine 2.5 mg 12/04/24 09:00 12/05/24 08:51 Olanzapine 2.5 Mg Tablet PO 2.5 mg QAM AMILCAR Administration Ondansetron HCl 4 mg 12/03/24 20:46 Ondansetron Inj 4 Mg/2 Ml Vial IV PUSH Q4H PRN Nausea Polyethylene Glycol 119 gm 12/05/24 20:00 Polyethylene Glycol 3350 238 Gm Bottle PO 12/06/24 05:01 BID@0500,2000 [facility] Potassium Chloride 10 meq 12/04/24 09:00 12/05/24 08:51 Potassium Chloride 10 Meq Er Tablet PO 10 meq DAILY AMILCAR Administration Quetiapine Fumarate 100 mg 12/03/24 22:50 12/04/24 21:45 Quetiapine Fumarate 100 Mg Tablet PO 100 mg HS AMILCAR Administration Quetiapine Fumarate 50 mg 12/03/24 22:50 12/04/24 21:45 Quetiapine Fumarate 25 Mg Tablet PO 50 mg HS AMILCAR Administration Fluticasone/Salmeterol 2 puff 12/03/24 22:45 12/05/24 07:33 Fluticasone/Salmeterol 115-21 Mcg Inhaler 1 Puff INHALATION 2 puff Q12HRT AMILCAR Administration Radiology Results: ITS Impressions Head CT 12/03/24 18:11 Impression: No large acute intracranial hemorrhage or suspicious mass effect. Labs Labs: Laboratory Results - last 24 hr 12/05/24 04:55 WBC 9.8 RBC 3.62 L Hgb 10.5 L D Hct 34.2 L MCV 94.5 D MCH 29.0 MCHC 30.7 L RDW 13.7 Plt Count 109 L MPV 10.3 Immature Gran % (Auto) 0.5 Neut % (Auto) 76.5 H Lymph % (Auto) 16.8 L [place] % (Auto) 5.1 Eos % (Auto) 0.8 Baso % (Auto) 0.3 Lymph # (Auto) 1.65 [place] # (Auto) 0.5 Eos # (Auto) 0.1 Baso # (Auto) 0.0 Abs Immat Gran (auto) 0.05 H Absolute Neuts (auto) 7.5 H Absolute Nucleated RBC 0.000 Nucleated RBC % 0.0 % Immature Plt Fraction 2.7
[2024-12-06] VITALS (18 sets, daily range): BP systolic 129–167; BP diastolic 62–120; PULSE 71–90; RESP 15–20; TEMP 36.4–36.9; O2SAT 96–100
[2024-12-06] MEDS: SODIUM CHLORIDE 0.9% IV 1,000 ML 75 ML IV CONT (04:58)
[2024-12-06 05:26] LABS: Hematocrit 34.6 % (37.0-47.0); Hemoglobin 11.3 g/dL (12.0-15.0); Immature Granulocyte Percent A 0.6 % (0-0.5); Immature Platelet Fraction Pct 4.3 % (0.9-11.2); Lymphocytes Absolute Auto 1.87 K/mm3 (0.9-3.2); Mean Corpuscular HGB Conc 32.7 g/dl (32-36); Mean Corpuscular Hemoglobin 29.5 pg (26-34); Mean Corpuscular Volume 90.3 fl (80-100); Nucleated Red Blood Cells Absolute Auto 0.000 K/mm3 (0.0-0.012); Nucleated Red Blood Cells Perc 0.0 % (0.0-0.2); Platelet Count Result 130 k/mm3 (150-375); Red Blood Count 3.83 M/mm3 (4.2-5.4); White Blood Count 9.9 K/mm3 (4.5-10.0)
[2024-12-06] MEDS: CARBIDOPA/LEVODOPA 25/100 MG TABLET 2 TABLET PO ×2 (05:26→21:22)
[2024-12-06] MEDS: LEVOTHYROXINE SODIUM 125 MCG TABLET PO (05:27)
[2024-12-06 05:40] LABS: Alanine Aminotransferase 9 U/L (6-35); Albumin Level 3.2 g/dL (3.5-5.1); Alkaline Phosphatase 67 U/L (38-126); Anion Gap 4 mmol/L (4-12); Aspartate Amino Transferase 75 U/L (14-36); Bilirubin,Total 0.6 mg/dL (0.2-1.3); Blood Urea Nitrogen 10 mg/dL (7-17); Calcium 7.5 mg/dL (8.4-10.2); Carbon Dioxide 25 mmol/L (22-30); Chloride 100 mmol/L (98-107); Estimated CRCL calculation 63 ml/min; Estimated Glomerular Filt Rate > 60; Glucose 97 mg/dL (65-110); Potassium 3.4 mmol/L (3.4-5.0); Sodium 129 mmol/L (137-145); Total Protein 6.1 g/dL (6.3-8.2)
[2024-12-06] MEDS: clonazePAM (*CRX) 0.5 MG TABLET PO (08:30)
[2024-12-06] MEDS: FLUTICASONE/SALMETEROL 115-21 MCG INHALER 1 PUFF 2 PUFF INHALATION ×2 (08:51→21:17)
--- NOTE | 2024-12-06 10:32 | P.PNIM_ITS ---
Progress Note: A&P Assessment and Plan (1) Rectal bleeding: Code(s): K62.5 - Hemorrhage of anus and rectum Status: Acute Assessment and Plan: * Monitor serum electrolytes, CBC, hemoglobin/hematocrit q.8 hours. If hemoglobin drops below 7 transfuse packed red blood cells * Monitor for bloody bowel movements,chest pain,SOB or dizziness/lightheadedness * Pantoprazole BID * DVT Px: SCDs * Avoid anti-coagulations * GI consult * Initiate bowel prep for x2 days - Colonoscopy on 12/06 * Clear liquid diet * Colonoscopy tomorrow * * 12/06 colonoscopy today hg/hct stable- 11.3/34.6 (2) Vasovagal syncope: Code(s): R55 - Syncope and collapse Status: Acute Assessment and Plan: * Likely secondary to underlying Parkinson's, dehydration from bowel prep and straining from bowel movement * 30 mL/kilos fluid bolus in ER -mentation returned to baseline * Encourage p.o. intake of fluids * PT/OT evaluations 12/05- no acut events (3) Electrolyte abnormality: Code(s): E87.8 - Other disorders of electrolyte and fluid balance, not elsewhere classified Status: Acute Assessment and Plan: * Hyponatremia/hypokalemia in ED * Low Na like 2/2 to hypovolemia * K supplementation given in ED but repeat showed decreased K+ - given 80 meq over course of next 4 hours * Also found to have Hypomagnesemia - given 2g Mg sulfate rider * 12/04: K 4.3, Na 135, Mg 1.7 * Monitor daily labs * * nutritional supplements (4) Dehydration: Code(s): E86.0 - Dehydration Status: Acute Assessment and Plan: * Likely secondary to bowel prep after colonoscopy * Continue gentle IV fluid hydration but encourage p.o. intake as well * Clear liquid diet at this time for bowel prep for colonoscopy on * * advance diet as tolerated once colonoscopy completed (5) Parkinson's disease: Qualifiers: Dyskinesia presence: unspecified whether dyskinesia Fluctuating manifestations: unspecified whether manifestations fluctuate Qualified Code(s): G20.A1 - Parkinson's disease without dyskinesia, without mention of fluctuations Code(s): G20 - Parkinson's disease Status: Acute Assessment and Plan: * Continue at-home medications (6) Major depressive disorder, recurrent, severe with psychotic symptoms: Code(s): F33.3 - Major depressive disorder, recurrent, severe with psychotic symptoms Status: Acute Assessment and Plan: * Continue at home medications (7) Elevated AST (SGOT): Code(s): R74.01 - Elevation of levels of liver transaminase levels Status: Acute Assessment and Plan: * On chart review, appears to be an acute elevation * No RUQ on exam * Continue to monitor daily labs * * 12/06- trending down-continue to monitor Time Spent With Patient Time with patient: Greater than 35 minutes Subjective Date/time seen: 12/06/24 10:32 Interval history: 74-year-old female with a past medical history of Parkinson's disease, prior CVA, post-polio syndrome, schizophrenia, multiple sclerosis and hypothyroidism who presented to the ER after having transient change in mental status bile having a bowel movement on the toilet. assuming care. Pt is seen and examined this morning. She is nPO for colonoscopy- approx. around 3 pm today. GI on board. she is comfortable, no acute events overnight.hg stable Exam Narrative: Weight 73.2 kg BMI 28.1 Const: General: comfortable Other: No acute distress, well-developed well-nourished, appears stated age, up in a chair, no pain HENMT: Other: Mucous membranes are dry, no oral pharyngeal erythema, head is normocephalic atraumatic Eyes: Other: Pupils are equal and reactive, mild scleral icterus, no conjunctival pallor Neck: Other: No JVD, no lymphadenopathy Resp: Other: Clear to auscultation bilaterally, no increased work of breathing Cardio: Other: Regular rate, regular rhythm, 2+ bilateral radial pedal pulses GI: Other: Soft, nontender, nondistended, normoactive bowel sounds Skin: Other: Mild pallor, non jaundice Neuro: Other: Alert oriented x4, speech is clear but slow, no facial asymmetry, no localizing neurologic deficits noted during the course of conversation Extrem: Other: 5/5 traffic chief strength bilaterally, no clubbi ng, cyanosis or edema, moves all extremities equally Psych: Other: Pleasant and cooperative, odd affect Objective Data Vital Signs Vital Signs: Vital Signs - 24 hr 12/05/24 12:00 12/05/24 12:37 12/05/24 14:00 Temperature 97.9 F Pulse Rate 85 82 Respiratory Rate 16 Blood Pressure 110/61 Pulse Oximetry 100 Oxygen Delivery Room Air 12/05/24 14:14 12/05/24 16:02 12/05/24 20:00 Temperature Pulse Rate 67 96 Respiratory Rate Blood Pressure Pulse Oximetry Oxygen Delivery Room Air 12/05/24 21:17 12/05/24 22:09 12/06/24 00:00 Temperature 97.7 F Pulse Rate 88 80 Respiratory Rate 14 Blood Pressure 130/90 Pulse Oximetry 96 100 Oxygen Delivery Room Air 12/06/24 04:00 12/06/24 06:45 12/06/24 08:02 Temperature 97.7 F Pulse Rate 71 90 86 Respiratory Rate 16 Blood Pressure 131/67 Pulse Oximetry 98 Oxygen Delivery 12/06/24 08:32 12/06/24 08:52 12/06/24 08:56 Temperature Pulse Rate 74 76 Respiratory Rate 16 18 18 Blood Pressure Pulse Oximetry 98 Oxygen Delivery Room Air 12/06/24 08:56 Temperature Pulse Rate Respiratory Rate Blood Pressure Pulse Oximetry 100 Oxygen Delivery Room Air Intake/Output Intake/Output: Intake & Output 12/03/24 12/04/24 12/05/24 12/06/24 23:59 23:59 23:59 23:59 Intake Total 2400 2480 5150.0 1257.5 Output Total 2450 1000 700 Balance 2400 30 4150.0 557.5 Meds/Results Medications: Active Medications Generic Name Dose Route Start Last Admin Trade Name Freq PRN Reason Stop Dose Admin Acetaminophen 650 mg 12/03/24 20:46 Acetaminophen 325 Mg Tablet PO Q4H PRN Mild Pain (1-3) or Fever Albuterol 2 puff 12/03/24 22:32 Albuterol Sulfate (*Sp) Aerosol 1 Puff INHALATION Q4H PRN shortness of breath or wheezing Carbidopa/Levodopa 2 tablet 12/03/24 22:50 12/06/24 05:26 Carbidopa/Levodopa 25/100 Mg Tablet PO 2 tablet Q8HR AMILCAR Administration Citalopram Hydrobromide 20 mg 12/04/24 09:00 12/06/24 08:29 Citalopram Hydrobromide 20 Mg Tablet PO Not Given DAILY AMILCAR Clonazepam 0.5 mg 12/04/24 09:00 12/06/24 08:30 Clonazepam (*Crx) 0.5 Mg Tablet PO 0.5 mg DAILY AMILCAR Administration Sodium Chloride 1,000 mls @ 75 mls/hr 12/04/24 13:30 12/06/24 04:58 Normal Saline Iv IV CONT 75 mls/hr .[id number] AMILCAR Administration Indapamide 2.5 mg 12/04/24 09:00 12/06/24 08:30 Indapamide 2.5 Mg Tablet PO Not Given DAILY AMILCAR Lamotrigine 200 mg 12/04/24 09:00 12/06/24 08:31 Lamotrigine 100 Mg Tablet PO Not Given DAILY AMILCAR Levothyroxine Sodium 125 mcg 12/04/24 06:30 12/06/24 05:27 Levothyroxine Sodium 125 Mcg Tablet PO 125 mcg DAILY@0630 AMILCAR Administration Montelukast Sodium 10 mg 12/04/24 09:00 12/06/24 08:31 Montelukast Sodium 10 Mg Tablet PO Not Given DAILY AMILCAR Olanzapine 5 mg 12/04/24 09:00 12/06/24 08:30 Olanzapine 5 Mg Tablet PO Not Given QAM AMILCAR Olanzapine 2.5 mg 12/04/24 09:00 12/06/24 08:31 Olanzapine 2.5 Mg Tablet PO Not Given QAM AMILCAR Ondansetron HCl 4 mg 12/03/24 20:46 Ondansetron Inj 4 Mg/2 Ml Vial IV PUSH Q4H PRN Nausea Potassium Chloride 10 meq 12/04/24 09:00 12/06/24 08:31 Potassium Chloride 10 Meq Er Tablet PO Not Given DAILY AMILCAR Quetiapine Fumarate 100 mg 12/03/24 22:50 12/05/24 20:56 Quetiapine Fumarate 100 Mg Tablet PO 100 mg HS AMILCAR Administration Quetiapine Fumarate 50 mg 12/03/24 22:50 12/05/24 20:57 Quetiapine Fumarate 25 Mg Tablet PO 50 mg HS AMILCAR Administration Fluticasone/Salmeterol 2 puff 12/03/24 22:45 12/06/24 08:51 Fluticasone/Salmeterol 115-21 Mcg Inhaler 1 Puff INHALATION 2 puff Q12HRT AMILCAR Administration Radiology Results: ITS Impressions Head CT 12/03/24 18:11 Impression: No large acute intracranial hemorrhage or suspicious mass effect. Labs Labs: Laboratory Results - last 24 hr 12/06/24 12/06/24 04:38 05:00 WBC 9.9 RBC 3.83 L Hgb 11.3 L Hct 34.6 L MCV 90.3 MCH 29.5 MCHC 32.7 RDW 13.9 Plt Count 130 L MPV 10.8 H Immature Gran % (Auto) 0.6 H Neut % (Auto) 72.7 Lymph % (Auto) 18.9 [place] % (Auto) 5.6 Eos % (Auto) 1.7 Baso % (Auto) 0.5 Lymph # (Auto) 1.87 [place] # (Auto) 0.6 Eos # (Auto) 0.2 Baso # (Auto) 0.1 Abs Immat Gran (auto) 0.06 H Absolute Neuts (auto) 7.2 H Absolute Nucleated RBC 0.000 Nucleated RBC % 0.0 % Immature Plt Fraction 4.3 Sodium 129 L Cancelled Potassium 3.4 Cancelled Chloride 100 Cancelled Carbon Dioxide 25 Cancelled Anion Gap 4 Cancelled BUN 10 D Cancelled Creatinine 0.64 L Cancelled Estim Creat Clear Calc 63 Cancelled Estimated GFR > 60 Cancelled Glucose 97 Cancelled Calcium 7.5 L Cancelled Total Bilirubin 0.6 Cancelled AST 75 H Cancelled ALT 9 Cancelled Alkaline Phosphatase 67 Cancelled Total Protein 6.1 L Cancelled Albumin 3.2 L Cancelled Quality VTE Prophylaxis VTE prophylaxis: mechanical ordered (SCDs)
--- NOTE | 2024-12-06 13:30 | PC.NURSE ---
To GI lab via wheelchair.
[2024-12-06] MEDS: LACTATED RINGERS 1,000 ML 150 ML IV CONT (13:48)
--- NOTE | 2024-12-06 14:00 | WPDANESEPPF ---
Anes - Initial Pre Proc Eval Procedure: Operation Date: 12/06/24 15:00 Proposed Procedures p Diagnostic Colonoscopy - Leland De La Rosa MD Date/Time: 12/06/24 14:00 Surgeon: Almaz Ta DO Pre Op Diagnosis: Dehydration, Hyponatremia, Hypokalemia, Vasovagal Patient Data Age: 74 Gender: F Height: 1.61 m Weight: 73.2 kg Last Vital Signs Temp 36.4 C L 12/06/24 13:44 Pulse 76 12/06/24 13:44 Resp 18 12/06/24 13:44 BP 132/68 12/06/24 13:44 Pulse Ox 100 12/06/24 13:44 O2 Del Method Room Air 12/06/24 13:44 Allergies Allergy/AdvReac Type Severity Reaction Status Date / Time wool Allergy Severe Rash Verified 12/03/24 22:07 Penicillins Allergy Intermediate Rash Verified 12/03/24 22:07 Home Medications ?Medication ?Instructions ?Recorded ?Confirmed ?Type citalopram 20 mg tablet 20 mg PO DAILY 05/09/19 12/03/24 History clonazepam 0.5 mg tablet 0.5 mg PO DAILY 05/09/19 12/03/24 History fluticasone 250 mcg-salmeterol 50 1 ea inhalation DAILY 05/09/19 12/03/24 History mcg/dose blistr powdr for inhalation (Advair Diskus) montelukast 10 mg tablet 10 mg PO DAILY 05/09/19 12/03/24 History lamotrigine 200 mg tablet 200 mg PO DAILY #90 tabs 08/09/22 12/03/24 Rx furosemide 40 mg tablet See Rx Instructions .Route 07/09/24 12/03/24 Rx .COMPLEX #100 tabs potassium chloride 10 mEq See Rx Instructions .Route 08/24/24 12/03/24 Rx capsule,extended release .COMPLEX #100 caps meclizine 25 mg tablet See Rx Instructions .Route 10/08/24 12/03/24 Rx .COMPLEX #400 tabs carbidopa 25 mg-levodopa 100 mg See Rx Instructions .Route 10/09/24 12/03/24 Rx tablet .COMPLEX #600 tabs cholecalciferol (vitamin D3) 1,250 1,250 mcg PO WEEKLY #14 caps 10/09/24 12/03/24 Rx mcg (50,000 unit) capsule interferon beta-1b 0.3 mg See Rx Instructions .Route 10/09/24 12/03/24 Rx subcutaneous kit (Betaseron) .COMPLEX #14 ea indapamide 2.5 mg tablet 2.5 mg PO DAILY #100 tabs 11/21/24 12/03/24 Rx albuterol sulfate 90 mcg/actuation 2 puff inhalation Q4H PRN 12/03/24 12/03/24 History aerosol inhaler shortness of breath or wheezing olanzapine 7.5 mg tablet 7.5 mg PO DAILY 12/03/24 12/03/24 History quetiapine 150 mg tablet 150 mg PO DAILY 12/03/24 12/03/24 History raloxifene 60 mg tablet 60 mg PO DAILY 12/03/24 12/03/24 History levothyroxine 125 mcg tablet See Rx Instructions .Route 12/05/24 Rx .COMPLEX #100 tabs Laboratory Tests 12/06/24 12/06/24 04:38 05:00 WBC 9.9 K/mm3 (4.5-10.0) RBC 3.83 L M/mm3 (4.2-5.4) Hgb 11.3 L g/dL (12.0-15.0) Hct 34.6 L % (37.0-47.0) MCV 90.3 fl (80-100) MCH 29.5 pg (26-34) MCHC 32.7 g/dl (32-36) RDW 13.9 % (11.5-14.5) Plt Count 130 L k/mm3 (150-375) MPV 10.8 H fl (7.4-10.4) Immature Gran % (Auto) 0.6 H % (0-0.5) Neut % (Auto) 72.7 % (45.5-73.1) Lymph % (Auto) 18.9 % (18.3-44.2) [place] % (Auto) 5.6 % (2.6-8.5) Eos % (Auto) 1.7 % (0-4.4) Baso % (Auto) 0.5 % (0.2-1.2) Lymph # (Auto) 1.87 K/mm3 (0.9-3.2) [place] # (Auto) 0.6 K/mm3 (0.1-0.6) Eos # (Auto) 0.2 K/mm3 (0-0.3) Baso # (Auto) 0.1 K/mm3 (0.0-0.1) Abs Immat Gran (auto) 0.06 H K/mm3 (0.00-0.031) Absolute Neuts (auto) 7.2 H K/mm3 (1.3-6.7) Absolute Nucleated RBC 0.000 K/mm3 (0.0-0.012) Nucleated RBC % 0.0 % (0.0-0.2) % Immature Plt Fraction 4.3 % (0.9-11.2) Sodium 129 L mmol/L Cancelled (137-145) Potassium 3.4 mmol/L Cancelled (3.4-5.0) Chloride 100 mmol/L Cancelled (98-107) Carbon Dioxide 25 mmol/L Cancelled (22-30) Anion Gap 4 mmol/L Cancelled (4-12) BUN 10 D mg/dL Cancelled (7-17) Creatinine 0.64 L mg/dL Cancelled (0.7-1.0) Estim Creat Clear Calc 63 ml/min Cancelled Estimated GFR > 60 Cancelled (59 - ) Glucose 97 mg/dL Cancelled (65-110) Calcium 7.5 L mg/dL Cancelled (8.4-10.2) Total Bilirubin 0.6 mg/dL Cancelled (0.2-1.3) AST 75 H U/L Cancelled (14-36) ALT 9 U/L Cancelled (6-35) Alkaline Phosphatase 67 U/L Cancelled (38-126) Total Protein 6.1 L g/dL Cancelled (6.3-8.2) Albumin 3.2 L g/dL Cancelled (3.5-5.1) Patient hx anesthesia problems: none Family hx anesthesia problems: none Results Review: All pre-operative results and documents have been reviewed as part of the pre-operative evaluation. [facility] Past Medical History Medical History Cerebrovascular disease Normal colonoscopy 05/21 Repeat 05/26 History of poliomyelitis 1953 Schizophrenia Hypothyroidism Asthma Parkinson's disease 2018 Multiple sclerosis Surgical History Surgical History S/P tonsillectomy and adenoidectomy Family History Family History Father Diabetes mellitus Carcinoma of colon Colon polyp Mother Hypertension Family history of malignant neoplasm of breast in first degree relative Acute myocardial infarction Breast cancer Depression Heart disease Other Heart disease Other Asthma Social History Social History Social History: Patient is single and has never been . She lives in her own home. She does not have any children. She retired from the [employer]. Code status: Full code Surrogate decision maker: Helen Culp Smoking status: Never smoker Second hand tobacco smoke exposure: No Alcohol intake: never Substance use: never Do You Feel Safe in your Home?: Yes Lack of Transportation: No Lack of Food: Never True Current Housing: I Have Housing Concerned About Future Housing: No Difficulty Paying Gas/Electric Bills: No Difficulty Paying for Meds: YES Currently Unemployed: No Education: Master's Degree or Higher Difficulty w/ Childcare or Family Care: No Living arrangements: alone Occupation/Education: retired Gender identity (if verbalized by the patient): Female Sexual Orientation (if Verbalized by the Patient): Straight or Heterosexual Spiritual care concerns: No Agree to blood products: Yes Anes - Eval Final PreProcedure Day of Procedure 12/06/24 14:00 Patient weight: overweight Heart: regular rate and rhythm Lungs: clear to auscultation Airway: Mallampati scale class II Neurological: alert and oriented Last oral intake: >/= 8 hours ASA classification: III Emergent: no Anesthetic plan: proceed Anesthesia type and monitoring: general GIVS and standard monitoring Results Review: All pre-operative results and documents have been reviewed as part of the pre-operative evaluation. Informed Consent: The patient's anesthetic plan and its attendant risks and benefits were discussed with the patient/family/POA. Questions were solicited and answers provided to the satisfaction of the patient/family/POA.
--- NOTE | 2024-12-06 14:58 | S_PTH ---
PATIENT: Vanessa Arechiga LOC: [id number] U#:[id number] AGE/SX: 74/F ROOM: 244 RE12/04/[address]: Renata RivasMD : 1950 BED: 01 DIS: 12/07/2024 SPEC #: [id number] RECD: 12/07/24 09:00 STATUS: ASIA REPancho #: [id number] KAMILAH: 12/06/24 14:[address]: Leland De La Rosa DEPT: [facility] Surgical RECD BY: Kong Sandoval ENTERED: 12/07/24 09:00 SP TYPE: Surgical OTHR DR: Pawan Finch, DO Sherri Sun, OUTSIDE MACHINIST Tissues: A - Colon Polypectomy Procedures: Hematoxylin and Eosin Stain Gross and Microscopic Level 4
--- NOTE | 2024-12-06 15:25 | PC.NURSE ---
Returned from GI Lab via stretcher.
--- NOTE | 2024-12-06 15:31 | P.PNGI_ITS ---
Progress Note: A&P Assessment and Plan (1) Internal hemorrhoids: Code(s): K64.8 - Other hemorrhoids Status: Acute Assessment and Plan: see colonoscopy report. Despite poor prep, only a small polyp in the sigmoid could be seen and removed. Clearly, the source of rectal bleeding are internal hemorrhoids. Once the patient is stable from the hemodynamic and metabolic standpoint, she can be discharged home. Due to her advanced age and multiple comorbidities, a follow-up colonoscopy is not warranted. (2) Rectal bleeding: Code(s): K62.5 - Hemorrhage of anus and rectum Status: Acute Subjective Date/time seen: 12/06/24 15:31 Objective Data Vital Signs Vital Signs: Vital Signs - 24 hr 12/05/24 16:02 12/05/24 20:00 12/05/24 21:17 Temperature Pulse Rate 67 96 Respiratory Rate Blood Pressure Pulse Oximetry 96 Oxygen Delivery Room Air 12/05/24 22:09 12/06/24 00:00 12/06/24 04:00 Temperature 97.7 F Pulse Rate 88 80 71 Respiratory Rate 14 Blood Pressure 130/90 Pulse Oximetry 100 Oxygen Delivery 12/06/24 06:45 12/06/24 08:02 12/06/24 08:32 Temperature 97.7 F Pulse Rate 90 86 Respiratory Rate 16 16 Blood Pressure 131/67 Pulse Oximetry 98 98 Oxygen Delivery Room Air 12/06/24 08:52 12/06/24 08:56 12/06/24 08:56 Temperature Pulse Rate 74 76 Respiratory Rate 18 18 Blood Pressure Pulse Oximetry 100 Oxygen Delivery Room Air 12/06/24 12:02 12/06/24 13:44 12/06/24 15:02 Temperature 97.5 F L Pulse Rate 83 76 78 Respiratory Rate 18 18 Blood Pressure 132/68 138/80 Pulse Oximetry 100 100 Oxygen Delivery Room Air Room Air 12/06/24 15:11 12/06/24 15:20 Temperature Pulse Rate 80 79 Respiratory Rate 18 18 Blood Pressure 146/118 H 167/120 H Pulse Oximetry 100 100 Oxygen Delivery Room Air Room Air Intake/Output Intake/Output: Intake & Output 12/03/24 12/04/24 12/05/24 12/06/24 23:59 23:59 23:59 23:59 Intake Total 2400 2480 5150.0 2080.0 Output Total 2450 1000 700 Balance 2400 30 4150.0 1380.0 Meds/Results Medications: Active Medications Generic Name Dose Route Start Last Admin Trade Name Freq PRN Reason Stop Dose Admin Acetaminophen 650 mg 12/03/24 20:46 Acetaminophen 325 Mg Tablet PO Q4H PRN Mild Pain (1-3) or Fever Albuterol 2 puff 12/03/24 22:32 Albuterol Sulfate (*Sp) Aerosol 1 Puff INHALATION Q4H PRN shortness of breath or wheezing Carbidopa/Levodopa 2 tablet 12/03/24 22:50 12/06/24 13:14 Carbidopa/Levodopa 25/100 Mg Tablet PO Not Given Q8HR AMILCAR Citalopram Hydrobromide 20 mg 12/04/24 09:00 12/06/24 08:29 Citalopram Hydrobromide 20 Mg Tablet PO Not Given DAILY AMILCAR Clonazepam 0.5 mg 12/04/24 09:00 12/06/24 08:30 Clonazepam (*Crx) 0.5 Mg Tablet PO 0.5 mg DAILY AMILCAR Administration Sodium Chloride 1,000 mls @ 75 mls/hr 12/04/24 13:30 12/06/24 13:16 Normal Saline Iv IV CONT 0 mls/hr .[id number] AMILCAR Infusion Lactated Ringer's 1,000 mls @ 150 mls/hr 12/06/24 13:45 12/06/24 15:09 Lr - Lactated Ringers Iv IV CONT Infused .[id number] AMILCAR Infusion Indapamide 2.5 mg 12/04/24 09:00 12/06/24 08:30 Indapamide 2.5 Mg Tablet PO Not Given DAILY AMILCAR Lamotrigine 200 mg 12/04/24 09:00 12/06/24 08:31 Lamotrigine 100 Mg Tablet PO Not Given DAILY AMILCAR Levothyroxine Sodium 125 mcg 12/04/24 06:30 12/06/24 05:27 Levothyroxine Sodium 125 Mcg Tablet PO 125 mcg DAILY@0630 AMILCAR Administration Montelukast Sodium 10 mg 12/04/24 09:00 12/06/24 08:31 Montelukast Sodium 10 Mg Tablet PO Not Given DAILY AMILCAR Olanzapine 5 mg 12/04/24 09:00 12/06/24 08:30 Olanzapine 5 Mg Tablet PO Not Given QAM AMILCAR Olanzapine 2.5 mg 12/04/24 09:00 12/06/24 08:31 Olanzapine 2.5 Mg Tablet PO Not Given QAM AMILCAR Ondansetron HCl 4 mg 12/03/24 20:46 Ondansetron Inj 4 Mg/2 Ml Vial IV PUSH Q4H PRN Nausea Potassium Chloride 10 meq 12/04/24 09:00 12/06/24 08:31 Potassium Chloride 10 Meq Er Tablet PO Not Given DAILY AMILCAR Quetiapine Fumarate 100 mg 12/03/24 22:50 12/05/24 20:56 Quetiapine Fumarate 100 Mg Tablet PO 100 mg HS AMILCAR Administration Quetiapine Fumarate 50 mg 12/03/24 22:50 12/05/24 20:57 Quetiapine Fumarate 25 Mg Tablet PO 50 mg HS AMILCAR Administration Fluticasone/Salmeterol 2 puff 12/03/24 22:45 12/06/24 08:51 Fluticasone/Salmeterol 115-21 Mcg Inhaler 1 Puff INHALATION 2 puff Q12HRT AMILCAR Administration Radiology Results: ITS Impressions Head CT 12/03/24 18:11 Impression: No large acute intracranial hemorrhage or suspicious mass effect. Labs Labs: Laboratory Results - last 24 hr 12/06/24 12/06/24 04:38 05:00 WBC 9.9 RBC 3.83 L Hgb 11.3 L Hct 34.6 L MCV 90.3 MCH 29.5 MCHC 32.7 RDW 13.9 Plt Count 130 L MPV 10.8 H Immature Gran % (Auto) 0.6 H Neut % (Auto) 72.7 Lymph % (Auto) 18.9 [place] % (Auto) 5.6 Eos % (Auto) 1.7 Baso % (Auto) 0.5 Lymph # (Auto) 1.87 [place] # (Auto) 0.6 Eos # (Auto) 0.2 Baso # (Auto) 0.1 Abs Immat Gran (auto) 0.06 H Absolute Neuts (auto) 7.2 H Absolute Nucleated RBC 0.000 Nucleated RBC % 0.0 % Immature Plt Fraction 4.3 Sodium 129 L Cancelled Potassium 3.4 Cancelled Chloride 100 Cancelled Carbon Dioxide 25 Cancelled Anion Gap 4 Cancelled BUN 10 D Cancelled Creatinine 0.64 L Cancelled Estim Creat Clear Calc 63 Cancelled Estimated GFR > 60 Cancelled Glucose 97 Cancelled Calcium 7.5 L Cancelled Total Bilirubin 0.6 Cancelled AST 75 H Cancelled ALT 9 Cancelled Alkaline Phosphatase 67 Cancelled Total Protein 6.1 L Cancelled Albumin 3.2 L Cancelled
[2024-12-07] VITALS (8 sets, daily range): BP systolic 116–129; BP diastolic 52–54; PULSE 78–84; RESP 16–20; TEMP 36.4; O2SAT 96–100
[2024-12-07 05:10] LABS: Hematocrit 32.0 % (37.0-47.0); Hemoglobin 10.1 g/dL (12.0-15.0); Immature Granulocyte Percent A 0.3 % (0-0.5); Immature Platelet Fraction Pct 3.2 % (0.9-11.2); Lymphocytes Absolute Auto 1.72 K/mm3 (0.9-3.2); Mean Corpuscular HGB Conc 31.6 g/dl (32-36); Mean Corpuscular Hemoglobin 28.9 pg (26-34); Mean Corpuscular Volume 91.4 fl (80-100); Nucleated Red Blood Cells Absolute Auto 0.000 K/mm3 (0.0-0.012); Nucleated Red Blood Cells Perc 0.0 % (0.0-0.2); Platelet Count Result 132 k/mm3 (150-375); Red Blood Count 3.50 M/mm3 (4.2-5.4); White Blood Count 6.4 K/mm3 (4.5-10.0)
[2024-12-07 05:22] LABS: Alanine Aminotransferase 7 U/L (6-35); Albumin Level 2.7 g/dL (3.5-5.1); Alkaline Phosphatase 65 U/L (38-126); Anion Gap 4 mmol/L (4-12); Aspartate Amino Transferase 56 U/L (14-36); Bilirubin,Total 0.6 mg/dL (0.2-1.3); Blood Urea Nitrogen 9 mg/dL (7-17); Calcium 7.9 mg/dL (8.4-10.2); Carbon Dioxide 25 mmol/L (22-30); Chloride 107 mmol/L (98-107); Estimated CRCL calculation 63 ml/min; Estimated Glomerular Filt Rate > 60; Glucose 90 mg/dL (65-110); Potassium 3.8 mmol/L (3.4-5.0); Sodium 136 mmol/L (137-145); Total Protein 5.5 g/dL (6.3-8.2)
[2024-12-07] MEDS: CARBIDOPA/LEVODOPA 25/100 MG TABLET 2 TABLET PO ×2 (05:52→13:36)
[2024-12-07] MEDS: LEVOTHYROXINE SODIUM 125 MCG TABLET PO (05:52)
[2024-12-07] MEDS: FLUTICASONE/SALMETEROL 115-21 MCG INHALER 1 PUFF 2 PUFF INHALATION (07:57)
[2024-12-07] MEDS: clonazePAM (*CRX) 0.5 MG TABLET PO (09:52)
[2024-12-07] MEDS: POTASSIUM CHLORIDE 10 MEQ ER TABLET PO (09:52)
[2024-12-07] MEDS: MONTELUKAST SODIUM 10 MG TABLET PO (09:52)
[2024-12-07] MEDS: INDAPAMIDE 2.5 MG TABLET PO (09:52)
[2024-12-07] MEDS: CITALOPRAM HYDROBROMIDE 20 MG TABLET PO (09:52)
--- NOTE | 2024-12-07 13:14 | P.PNIM_ITS ---
Progress Note: A&P Assessment and Plan (1) Rectal bleeding: Code(s): K62.5 - Hemorrhage of anus and rectum Status: Acute Assessment and Plan: Status post colonoscopy, polyp removed Bleeding source is internal hemorrhoid hemoglobin stable 10.1 today (2) Vasovagal syncope: Code(s): R55 - Syncope and collapse Status: Acute Assessment and Plan: * Likely secondary to underlying Parkinson's, dehydration from bowel prep and straining from bowel movement * 30 mL/kilos fluid bolus in ER -mentation returned to baseline * Encourage p.o. intake of fluids * PT/OT evaluations no significant arrhythmia, no syncope during hospitalization (3) Electrolyte abnormality: Code(s): E87.8 - Other disorders of electrolyte and fluid balance, not elsewhere classified Status: Acute Assessment and Plan: * Hyponatremia/hypokalemia in ED * Low Na like 2/2 to hypovolemia * K supplementation given in ED but repeat showed decreased K+ - given 80 meq over course of next 4 hours * Also found to have Hypomagnesemia - given 2g Mg sulfate rider * 12/04: K 4.3, Na 135, Mg 1.7 Electrolyte abnormality corrected (4) Dehydration: Code(s): E86.0 - Dehydration Status: Acute Assessment and Plan: Received fluid resuscitation Corrected (5) Parkinson's disease: Qualifiers: Dyskinesia presence: unspecified whether dyskinesia Fluctuating manifestations: unspecified whether manifestations fluctuate Qualified Code(s): G20.A1 - Parkinson's disease without dyskinesia, without mention of fluctuations Code(s): G20 - Parkinson's disease Status: Acute Assessment and Plan: * Continue at-home medications (6) Major depressive disorder, recurrent, severe with psychotic symptoms: Code(s): F33.3 - Major depressive disorder, recurrent, severe with psychotic symptoms Status: Acute Assessment and Plan: * Continue at home medications (7) Elevated AST (SGOT): Code(s): R74.01 - Elevation of levels of liver transaminase levels Status: Acute Assessment and Plan: * On chart review, appears to be an acute elevation * No RUQ on exam * Continue to monitor daily labs * * 12/06- trending down * continue to monitor per PCP Subjective Date/time seen: 12/07/24 13:14 Interval history: I saw exam patient today, patient feels comfortable, denies abdomen pain, nausea vomiting diarrhea, chest pain shortness breast lightheadedness. Patient ambulate without difficulty. Patient denies focal weakness labs reviewed, hemoglobin 10.1 on the baseline Exam Narrative: GENERAL: Pleasant, in no acute distress. Well-nourished. - EYES: EOMI. Anicteric. - HENT: Moist mucous membranes. - LUNGS: Clear to auscultation bilateral ly, no wheezing, rhonchi, or rales. - CARDIOVASCULAR: Regular rate and rhyth m. No murmur. No JVD. - ABDOMEN: Soft, non-tender and non-dist ended. No palpable masses. - EXTREMITIES: No edema. Peripheral puls es 2+. Non-tender. - NEUROLOGIC: No focal neurological defi cits. CN II-XII grossly intact. - PSYCHIATRIC: Awake, Alert and oriented x 3. Appropriate mood and affect. - SKIN: No rashes or lesions. Warm. - LYMPH: No cervical lymphadenopathy. Objective Data Vital Signs Vital Signs: Vital Signs - 24 hr 12/06/24 13:44 12/06/24 15:02 12/06/24 15:11 Temperature 97.5 F L Pulse Rate 76 78 80 Respiratory Rate 18 18 18 Blood Pressure 132/68 138/80 146/118 H Pulse Oximetry 100 100 100 Oxygen Delivery Room Air Room Air Room Air 12/06/24 15:20 12/06/24 15:48 12/06/24 15:50 Temperature 97.7 F Pulse Rate 79 78 Respiratory Rate 18 18 20 Blood Pressure 167/120 H 129/75 Pulse Oximetry 100 100 100 Oxygen Delivery Room Air Room Air 12/06/24 16:02 12/06/24 20:00 12/06/24 21:17 Temperature Pulse Rate 78 78 Respiratory Rate Blood Pressure Pulse Oximetry 96 Oxygen Delivery Room Air 12/06/24 21:17 12/06/24 21:28 12/07/24 00:00 Temperature 98.4 F Pulse Rate 81 83 84 Respiratory Rate 15 20 Blood Pressure 133/62 Pulse Oximetry 98 Oxygen Delivery 12/07/24 04:00 12/07/24 05:14 12/07/24 07:58 Temperature 97.6 F Pulse Rate 80 78 82 Respiratory Rate 20 16 Blood Pressure 116/52 L Pulse Oximetry 97 Oxygen Delivery 12/07/24 08:01 12/07/24 09:55 Temperature Pulse Rate 83 83 Respiratory Rate Blood Pressure Pulse Oximetry 96 Oxygen Delivery Room Air Intake/Output Intake/Output: Intake & Output 12/04/24 12/05/24 12/06/24 12/07/24 23:59 23:59 23:59 23:59 Intake Total 2480 5150.0 2760.0 820 Output Total 2450 2384 762 4270 Balance 30 4150.0 1910.0 -1080 Meds/Results Medications: Active Medications Generic Name Dose Route Start Last Admin Trade Name Freq PRN Reason Stop Dose Admin Acetaminophen 650 mg 12/03/24 20:46 Acetaminophen 325 Mg Tablet PO Q4H PRN Mild Pain (1-3) or Fever Albuterol 2 puff 12/03/24 22:32 Albuterol Sulfate (*Sp) Aerosol 1 Puff INHALATION Q4H PRN shortness of breath or wheezing Carbidopa/Levodopa 2 tablet 12/03/24 22:50 12/07/24 05:52 Carbidopa/Levodopa 25/100 Mg Tablet PO 2 tablet Q8HR AMILCAR Administration Citalopram Hydrobromide 20 mg 12/04/24 09:00 12/07/24 09:52 Citalopram Hydrobromide 20 Mg Tablet PO 20 mg DAILY AMILCAR Administration Clonazepam 0.5 mg 12/04/24 09:00 12/07/24 09:52 Clonazepam (*Crx) 0.5 Mg Tablet PO 0.5 mg DAILY AMILCAR Administration Indapamide 2.5 mg 12/04/24 09:00 12/07/24 09:52 Indapamide 2.5 Mg Tablet PO 2.5 mg DAILY AMILCAR Administration Lamotrigine 200 mg 12/04/24 09:00 12/07/24 09:52 Lamotrigine 100 Mg Tablet PO 200 mg DAILY AMILCAR Administration Levothyroxine Sodium 125 mcg 12/04/24 06:30 12/07/24 05:52 Levothyroxine Sodium 125 Mcg Tablet PO 125 mcg DAILY@0630 AMILCAR Administration Montelukast Sodium 10 mg 12/04/24 09:00 12/07/24 09:52 Montelukast Sodium 10 Mg Tablet PO 10 mg DAILY AMILCAR Administration Olanzapine 5 mg 12/04/24 09:00 12/07/24 09:52 Olanzapine 5 Mg Tablet PO 5 mg QAM AMILCAR Administration Olanzapine 2.5 mg 12/04/24 09:00 12/07/24 09:52 Olanzapine 2.5 Mg Tablet PO 2.5 mg QAM AMILCAR Administration Ondansetron HCl 4 mg 12/03/24 20:46 Ondansetron Inj 4 Mg/2 Ml Vial IV PUSH Q4H PRN Nausea Potassium Chloride 10 meq 12/04/24 09:00 12/07/24 09:52 Potassium Chloride 10 Meq Er Tablet PO 10 meq DAILY AMILCAR Administration Quetiapine Fumarate 100 mg 12/03/24 22:50 12/06/24 21:22 Quetiapine Fumarate 100 Mg Tablet PO 100 mg HS AMILCAR Administration Quetiapine Fumarate 50 mg 12/03/24 22:50 12/06/24 21:22 Quetiapine Fumarate 25 Mg Tablet PO 50 mg HS AMILCAR Administration Fluticasone/Salmeterol 2 puff 12/03/24 22:45 12/07/24 07:57 Fluticasone/Salmeterol 115-21 Mcg Inhaler 1 Puff INHALATION 2 puff Q12HRT AMILCAR Administration Radiology Results: ITS Impressions Head CT 12/03/24 18:11 Impression: No large acute intracranial hemorrhage or suspicious mass effect. Labs Labs: Laboratory Results - last 24 hr 12/07/24 04:39 WBC 6.4 RBC 3.50 L Hgb 10.1 L Hct 32.0 L MCV 91.4 MCH 28.9 MCHC 31.6 L RDW 14.0 Plt Count 132 L MPV 10.9 H Immature Gran % (Auto) 0.3 Neut % (Auto) 61.5 Lymph % (Auto) 27.0 [place] % (Auto) 8.3 Eos % (Auto) 2.4 Baso % (Auto) 0.5 Lymph # (Auto) 1.72 [place] # (Auto) 0.5 Eos # (Auto) 0.2 Baso # (Auto) 0.0 Abs Immat Gran (auto) 0.02 Absolute Neuts (auto) 3.9 Absolute Nucleated RBC 0.000 Nucleated RBC % 0.0 % Immature Plt Fraction 3.2 Sodium 136 L Potassium 3.8 Chloride 107 Carbon Dioxide 25 Anion Gap 4 BUN 9 Creatinine 0.64 L Estim Creat Clear Calc 63 Estimated GFR > 60 Glucose 90 Calcium 7.9 L Total Bilirubin 0.6 AST 56 H ALT 7 Alkaline Phosphatase 65 Total Protein 5.5 L Albumin 2.7 L
--- NOTE | 2024-12-07 13:45 | P.DS_ITS ---
DS: Admitting Diagnosis Discharge Date 12/07/24 Admitting Diagnosis rectal bleeding Dehydration Parkinson disease Transaminitis DS: Discharge Diagnosis Discharge Diagnosis (1) Rectal bleeding: Code(s): K62.5 - Hemorrhage of anus and rectum Status: Acute Assessment and Plan: Status post colonoscopy, polyp removed Bleeding source is internal hemorrhoid hemoglobin stable 10.1 today (2) Vasovagal syncope: Code(s): R55 - Syncope and collapse Status: Acute Assessment and Plan: * Likely secondary to underlying Parkinson's, dehydration from bowel prep and straining from bowel movement * 30 mL/kilos fluid bolus in ER -mentation returned to baseline * Encourage p.o. intake of fluids * PT/OT evaluations no significant arrhythmia, no syncope during hospitalization (3) Electrolyte abnormality: Code(s): E87.8 - Other disorders of electrolyte and fluid balance, not elsewhere classifi ed Status: Acute Assessment and Plan: * Hyponatremia/hypokalemia in ED * Low Na like 2/2 to hypovolemia * K supplementation given in ED but repeat showed decreased K+ - given 80 meq over course of next 4 hours * Also found to have Hypomagnesemia - given 2g Mg sulfate rider * 12/04: K 4.3, Na 135, Mg 1.7 Electrolyte abnormality corrected (4) Dehydration: Code(s): E86.0 - Dehydration Status: Acute Assessment and Plan: Received fluid resuscitation Corrected (5) Parkinson's disease: Qualifiers: Dyskinesia presence: unspecified whether dyskinesia Fluctuating manifestations: unspecified whether manifestations fluctuate Qualified Code(s): G20.A1 - Parkinson's disease without dyskinesia, without mention of fluctuations Code(s): G20 - Parkinson's disease Status: Acute Assessment and Plan: * Continue at-home medications (6) Major depressive disorder, recurrent, severe with psychotic symptoms: Code(s): F33.3 - Major depressive disorder, recurrent, severe with psychotic symptoms Status: Acute Assessment and Plan: * Continue at home medications (7) Elevated AST (SGOT): Code(s): R74.01 - Elevation of levels of liver transaminase levels Status: Acute Assessment and Plan: * On chart review, appears to be an acute elevation * No RUQ on exam * Continue to monitor daily labs * * 12/06- trending down * continue to monitor per PCP DS: Summary Hospital Course Hospital Course: 74-year-old female with a past medical history of Parkinson's disease, prior CVA, post-polio syndrome, schizophrenia, multiple sclerosis and hypothyroidism who presented to the ER after having transient change in mental status bile having a bowel movement on the toilet. Patient has a history of colon polyps and has a family history of colorectal cancer she was originally scheduled for colonoscopy in August but colonoscopy was unable to be performed due to inadequate prep. She was subsequently rescheduled to have colonoscopy on 12/04/2024. She was in the process of colon prep when she was having a bowel movement and became altered on the toilet. The patient's family contacted EMS EMS stated the patient appeared to have had a vagal episode. Patient's blood pressures were stable by the time she arrived to the ER. She is alert oriented to person place and time and remembers taking the medications for the bowel prep but does not remember passing out on the toilet. She reports that her abdomen feels ?sensitive?. But she has no other complaints. the following med issues have been addressed during hospitalization (1) Rectal bleeding: Code(s): K62.5 - Hemorrhage of anus and rectum Status: Acute Assessment and Plan: Status post colonoscopy, polyp removed Bleeding source is internal hemorrhoid hemoglobin stable 10.1 today (2) Vasovagal syncope: Code(s): R55 - Syncope and collapse Status: Acute Assessment and Plan: * Likely secondary to underlying Parkinson's, dehydration from bowel prep and straining from bowel movement * 30 mL/kilos fluid bolus in ER -mentation returned to baseline * Encourage p.o. intake of fluids * PT/OT evaluations no significant arrhythmia, no syncope during hospitalization (3) Electrolyte abnormality: Code(s): E87.8 - Other disorders of electrolyte and fluid balance, not elsewhere classified Status: Acute Assessment and Plan: * Hyponatremia/hypokalemia in ED * Low Na like 2/2 to hypovolemia * K supplementation given in ED but repeat showed decreased K+ - given 80 meq ov er course of next 4 hours * Also found to have Hypomagnesemia - given 2g Mg sulfate rider * 12/04: K 4.3, Na 135, Mg 1.7Electrolyte abnormality corrected (4) Dehydration: Code(s): E86.0 - Dehydration Status: Acute Assessment and Plan: Received fluid resuscitation Corrected (5) Parkinson's disease: Qualifiers: Dyskinesia presence: unspecified whether dyskinesia Fluctuating manif estations: unspecified whether manifestations fluctuate Qualified Code(s): G20.A1 - Parkinson's disease without dyskinesia, without mention of fluctuations Code(s): G20 - Parkinson's disease Status: Acute Assessment and Plan: * Continue at-home medications(6) Major depressive disorder, recurrent, severe with psychotic symptoms: Code(s): F33.3 - Major depressive disorder, recurrent, severe with psychotic symptoms Status: Acute Assessment and Plan: * Continue at home medications(7) Elevated AST (SGOT): Code(s): R74.01 - Elevation of levels of liver transaminase levels Status: Acute Assessment and Plan: * On chart review, appears to be an acute elevation * No RUQ on exam * Continue to monitor daily labs * * 12/06- trending down * continue to monitor per PCP Time Spent with Patient Time attestation: Total time spent providing and/or coordinating discharge services: Exam Narrative: GENERAL: Pleasant, in no acute distress. Well-nourished. - EYES: EOMI. Anicteric. - HENT: Moist mucous membranes. - LUNGS: Clear to auscultation bilateral ly, no wheezing, rhonchi, or rales. - CARDIOVASCULAR: Regular rate and rhyth m. No murmur. No JVD. - ABDOMEN: Soft, non-tender and non-dist ended. No palpable masses. - EXTREMITIES: No edema. Peripheral puls es 2+. Non-tender. - NEUROLOGIC: No focal neurological defi cits. CN II-XII grossly intact. - PSYCHIATRIC: Awake, Alert and oriented x 3. Appropriate mood and affect. - SKIN: No rashes or lesions. Warm. - LYMPH: No cervical lymphadenopathy. DS: Data Data Completed and Pending Pending studies at discharge: Pending at discharge 12/06/24 14:58 Surgical [PTH] Routine Labs on day of discharge: Labs from last 24 hours 12/07/24 04:39 WBC 6.4 RBC 3.50 L Hgb 10.1 L Hct 32.0 L MCV 91.4 MCH 28.9 MCHC 31.6 L RDW 14.0 Plt Count 132 L MPV 10.9 H Immature Gran % (Auto) 0.3 Neut % (Auto) 61.5 Lymph % (Auto) 27.0 [place] % (Auto) 8.3 Eos % (Auto) 2.4 Baso % (Auto) 0.5 Lymph # (Auto) 1.72 [place] # (Auto) 0.5 Eos # (Auto) 0.2 Baso # (Auto) 0.0 Abs Immat Gran (auto) 0.02 Absolute Neuts (auto) 3.9 Absolute Nucleated RBC 0.000 Nucleated RBC % 0.0 % Immature Plt Fraction 3.2 Sodium 136 L Potassium 3.8 Chloride 107 Carbon Dioxide 25 Anion Gap 4 BUN 9 Creatinine 0.64 L Estim Creat Clear Calc 63 Estimated GFR > 60 Glucose 90 Calcium 7.9 L Total Bilirubin 0.6 AST 56 H ALT 7 Alkaline Phosphatase 65 Total Protein 5.5 L Albumin 2.7 L Discharge Plan Discharge Attending physician on discharge: Renata Rivas Consulting providers: Pawan Finch Discharging Clinician: Renata Rivas Anticipated Discharge Date/Time: 12/07/24 13:46 Patient Disposition: Home Activity: no shower Diet: as tolerated and regular Patient Instructions: Antibiotic Form Patient Language: American Stand Alone Forms: General Discharge Information Follow-up/Referrals: Sherri Bagley APRN [Primary Care Provider] - (see pcp in one week) Discharge Medications: Continued carbidopa-levodopa 25-100 mg tablet See Rx Instructions .ROUTE .COMPLEX Qty: 600 2RF Dose Instruction: TAKE 2 TABLETS BY MOUTH 3 TIMES DAILY Rx Instructions: TAKE 2 TABLETS BY MOUTH 3 TIMES DAILY Betaseron 0.3 mg kit See Rx Instructions .ROUTE .COMPLEX Qty: 14 6RF Dose Instruction: MIX WITH 1.2ML DILUENT AND INJECT 0.25MG (1ML) SUBCUTANEOUSLY EVERY OTHER DAY Rx Instructions: MIX WITH 1.2ML DILUENT AND INJECT 0.25MG (1ML) SUBCUTANEOUSLY EVERY OTHER DAY cholecalciferol (vitamin D3) 1,250 mcg (50,000 unit) capsule 1,250 mcg PO WEEKLY Qty: 14 0RF Patient Comments: patient states she takes TWO vitamin D gummies daily olanzapine 7.5 mg tablet 7.5 mg PO DAILY raloxifene 60 mg tablet 60 mg PO DAILY quetiapine 150 mg tablet 150 mg PO DAILY albuterol sulfate 90 mcg/actuation HFA aerosol inhaler 2 puff INHALATION Q4H PRN (Reason: shortness of breath or wheezing) fluticasone propion-salmeterol [Advair Diskus] 250-50 mcg/dose blister with device 1 ea INHALATION DAILY clonazepam 0.5 mg tablet 0.5 mg PO DAILY citalopram 20 mg tablet 20 mg PO DAILY montelukast 10 mg tablet 10 mg PO DAILY lamotrigine 200 mg tablet 200 mg PO DAILY Qty: 90 2RF furosemide 40 mg tablet See Rx Instructions .ROUTE .COMPLEX Qty: 100 1RF Dose Instruction: TAKE 1 TABLET BY MOUTH EVERY MORNING Rx Instructions: TAKE 1 TABLET BY MOUTH EVERY MORNING potassium chloride 10 mEq capsule, extended release See Rx Instructions .ROUTE .COMPLEX Qty: 100 1RF Dose Instruction: TAKE 1 CAPSULE BY MOUTH DAILY Rx Instructions: TAKE 1 CAPSULE BY MOUTH DAILY meclizine 25 mg tablet See Rx Instructions .ROUTE .COMPLEX Qty: 400 0RF Dose Instruction: TAKE 1 TABLET BY MOUTH 4 TIMES DAILY NEEDED FOR DIZZINESS Rx Instructions: TAKE 1 TABLET BY MOUTH 4 TIMES DAILY NEEDED FOR DIZZINESS indapamide 2.5 mg tablet 2.5 mg PO DAILY Qty: 100 1RF levothyroxine 125 mcg tablet See Rx Instructions .ROUTE .COMPLEX Qty: 100 3RF Dose Instruction: TAKE 1 TABLET BY MOUTH DAILY Rx Instructions: TAKE 1 TABLET BY MOUTH DAILY Date of admission: 12/04/24 14:37 Primary Care Provider: Sherri Bagley Admitting Provider: Almaz Ta Attending physician on admission: Almaz Ta Condition: Stable
== END 2024-12-07 17:50 | disposition home or self-care (01) | DRG 641 ==
LOC: ANHED 20:50 → ANH2MED 21:10
PROVIDERS: Internal Medicine Gastroenterology; Physician Assistant; Admitting Provider Internal Medicine; Emergency Provider Emergency Medicine; PCP Nurse Practitioner Family; Visit Provider Hospitalist
PROC: 0DJD8ZZ Inspection of Lower Intestinal Tract, Via Natural or Artificial Opening Endoscopic (ICD-10-PCS; CPT 45378; principal; 2024-12-06 15:00)
DX: E86.0 Dehydration (principal); K62.5 Hemorrhage of anus and rectum; F33.3 Major depressive disorder, recurrent, severe with psychotic symptoms; R55 Syncope and collapse; E87.1 Hypo-osmolality and hyponatremia; E86.1 Hypovolemia; E87.6 Hypokalemia; E83.42 Hypomagnesemia; E03.9 Hypothyroidism, unspecified; J45.909 Unspecified asthma, uncomplicated; K63.5 Polyp of colon; K64.8 Other hemorrhoids; G20.A1 Parkinson's disease without dyskinesia, without mention of fluctuations; G35 Multiple sclerosis; Z86.12 Personal history of poliomyelitis; Z86.73 Personal history of transient ischemic attack (TIA), and cerebral infarction without residual deficits; Z80.0 Family history of malignant neoplasm of digestive organs
CPT/HCPCS: 36415; 36600; 70450; 80048; 80053; 80076; 81003; 82375; 82805; 82948; 83050; 83735; 85018; 85025; 85055; 85610; 85730; 88305; 93005; 94640; 96365; 96366; 96367; 96375; 97110; 97161; 97166; 97530; 99285; A9270; G0378; J0612; J2003; J2704; J3475; J3480; J7030; J7120

== ENCOUNTER 2024-12-13 15:47 | Outpatient (CLI) | payer MEDICARE, SELFPAY ==
[2024-12-13 16:19] LABS: Hematocrit 37.3 % (37.0-47.0); Hemoglobin 11.6 g/dL (12.0-15.0); Immature Granulocyte Percent A 0.2 % (0-0.5); Lymphocytes Absolute Auto 1.50 K/mm3 (0.9-3.2); Mean Corpuscular HGB Conc 31.1 g/dl (32-36); Mean Corpuscular Hemoglobin 28.6 pg (26-34); Mean Corpuscular Volume 91.9 fl (80-100); Nucleated Red Blood Cells Absolute Auto 0.000 K/mm3 (0.0-0.012); Nucleated Red Blood Cells Perc 0.0 % (0.0-0.2); Platelet Count Result 183 k/mm3 (150-375); Red Blood Count 4.06 M/mm3 (4.2-5.4); White Blood Count 5.2 K/mm3 (4.5-10.0)
[2024-12-13 17:50] LABS: Alanine Aminotransferase 26 U/L (6-35); Albumin Level 3.9 g/dL (3.5-5.1); Alkaline Phosphatase 68 U/L (38-126); Anion Gap 8 mmol/L (4-12); Aspartate Amino Transferase 38 U/L (14-36); Bilirubin,Total 0.4 mg/dL (0.2-1.3); Blood Urea Nitrogen 19 mg/dL (7-17); Calcium 8.9 mg/dL (8.4-10.2); Carbon Dioxide 29 mmol/L (22-30); Chloride 100 mmol/L (98-107); Estimated Glomerular Filt Rate > 60; Glucose 88 mg/dL (65-110); Potassium 3.8 mmol/L (3.4-5.0); Sodium 137 mmol/L (137-145); Total Protein 7.5 g/dL (6.3-8.2)
[2024-12-13 18:05] LABS: Thyroid Stimulating Hormone Reflex 2.400 uIU/mL (0.465-4.68)
[2024-12-13 20:35] LABS: Hemoglobin A1C 5.3 % (<5.7)
== END 2024-12-13 15:48 | disposition home or self-care (01) ==
PROVIDERS: PCP Family Medicine; Visit Provider Family Medicine
DX: Z13.1 Encounter for screening for diabetes mellitus (principal); F33.3 Major depressive disorder, recurrent, severe with psychotic symptoms; G35 Multiple sclerosis; I10 Essential (primary) hypertension
CPT/HCPCS: 36415; 80053; 83036; 84443; 85025

== ENCOUNTER → 2025-01-16 15:10 | Outpatient (CLI) | payer MEDICARE, SELFPAY ==
--- NOTE | ~2025-01-16 | XR_ITS ---
EXAMINATION: XR tibia fibula RT 2V, 01/16/2025 15:16 CDT HISTORY: RT lower leg contusion, no injury no pain COMPARISON: No comparisons available. Findings: No acute fracture or malalignment. No significant degenerative changes. Soft tissues unremarkable. Impression: No acute fracture or malalignment. Reviewed, dictated and finalized at location A. Impression: No acute fracture or malalignment.
== END ==
LOC: EXPCRAD 15:12
PROVIDERS: PCP Family Medicine; Visit Provider Family Medicine
DX: S80.10XA Contusion of unspecified lower leg, initial encounter (principal); X58.XXXA Exposure to other specified factors, initial encounter
CPT/HCPCS: 73590